=== PATIENT | female | born 1970 | race Caucasian/White ===

== ENCOUNTER 2020-06-21 15:55 | Outpatient (REF) | payer MEDICAID, SELFPAY | END 2020-06-21 15:56 | disposition home or self-care (01) | LOC: HO.LAB 15:55 | PROVIDERS: PCP Family Medicine; Visit Provider Internal Medicine | DX: Z20.828 Contact with and (suspected) exposure to other viral communicable diseases (principal) | CPT/HCPCS: C9803; U0003 ==

== ENCOUNTER 2021-01-23 11:22 | Outpatient (REF) | payer MEDICAID, SELFPAY ==
--- NOTE | ~2021-01-23 | XR_ITS ---
EXAMINATION: XR KNEE, RIGHT XR KNEE, LEFT CLINICAL INFORMATION: Pain in right and left knee. COMPARISON: None pertinent. TECHNIQUE: AP, lateral, tunnel, and sunrise views of the right knee and the left knee. FINDINGS: RIGHT KNEE: There is no evidence of fracture or focal osseous lesion. Alignment appears anatomic. The joint spaces are relatively well maintained. No significant degenerative change. No significant joint effusion. The soft tissues are unremarkable. LEFT KNEE: There is no evidence of fracture or focal osseous lesion. Alignment is anatomic and the joint spaces are relatively well maintained. No significant degenerative change. No significant joint effusion. The soft tissues are unremarkable. XR/XR knee LT 4V IMPRESSION: Unremarkable radiographs of the right knee and left knee.
--- NOTE | ~2021-01-23 | XR_ITS ---
EXAMINATION: XR KNEE, RIGHT XR KNEE, LEFT CLINICAL INFORMATION: Pain in right and left knee. COMPARISON: None pertinent. TECHNIQUE: AP, lateral, tunnel, and sunrise views of the right knee and the left knee. FINDINGS: RIGHT KNEE: There is no evidence of fracture or focal osseous lesion. Alignment appears anatomic. The joint spaces are relatively well maintained. No significant degenerative change. No significant joint effusion. The soft tissues are unremarkable. LEFT KNEE: There is no evidence of fracture or focal osseous lesion. Alignment is anatomic and the joint spaces are relatively well maintained. No significant degenerative change. No significant joint effusion. The soft tissues are unremarkable. XR/XR knee RT 4V IMPRESSION: Unremarkable radiographs of the right knee and left knee.
== END 2021-01-23 11:23 | disposition home or self-care (01) ==
LOC: HO.XRAY 11:22
PROVIDERS: Absent Provider Family Medicine; PCP Family Medicine; Visit Provider Family Medicine
DX: M25.561 Pain in right knee (principal)
CPT/HCPCS: 73564

== ENCOUNTER 2022-05-31 | Outpatient (REF) | payer MEDICAID, SELFPAY | END 2022-05-31 00:01 | disposition home or self-care (01) | LOC: HO.HOSX | PROVIDERS: Visit Provider Physician Assistant | DX: Z13.89 Encounter for screening for other disorder (principal) ==

== ENCOUNTER 2023-03-24 18:36 | Outpatient (REF) | payer MEDICAID, SELFPAY ==
[2023-03-24 19:21] LABS: Influenza A PCR NEGATIVE (Negative); Influenza B PCR NEGATIVE (Negative); Resp Syncy Virus RNA Qual PCR NEGATIVE (Negative); SARS COV2 PCR INHOUSE NEGATIVE (Negative)
== END 2023-03-24 18:37 | disposition home or self-care (01) ==
LOC: HO.HHCLNP 18:36
PROVIDERS: Visit Provider Registered Nurse
DX: Z20.822 Contact with and (suspected) exposure to COVID-19 (principal); J02.9 Acute pharyngitis, unspecified
CPT/HCPCS: 0241U

== ENCOUNTER 2023-03-27 13:23 | Outpatient (REF) | payer OTHER, SELFPAY ==
--- NOTE | ~2023-03-27 | XR_ITS ---
EXAMINATION: XR CHEST CLINICAL INFORMATION: Dyspnea. COMPARISON: 02/04/2014 chest radiograph. TECHNIQUE: 2 views of the chest were obtained. FINDINGS: No significant abnormality is noted involving the heart, lungs, mediastinum, bony thorax or soft tissues. XR/XR chest 2V IMPRESSION: No acute cardiopulmonary process.
[2023-03-27 20:02] LABS: Influenza A PCR NEGATIVE (Negative); Influenza B PCR NEGATIVE (Negative); Resp Syncy Virus RNA Qual PCR NEGATIVE (Negative); SARS COV2 PCR INHOUSE NEGATIVE (Negative)
== END 2023-03-27 13:24 | disposition home or self-care (01) ==
LOC: HO.HHCX 13:23
PROVIDERS: Visit Provider Student in an Organized Health Care Education/Training Program
DX: Z20.822 Contact with and (suspected) exposure to COVID-19 (principal); J06.9 Acute upper respiratory infection, unspecified; R06.00 Dyspnea, unspecified; R05.9 Cough, unspecified; R50.9 Fever, unspecified
CPT/HCPCS: 0241U; 71046

== ENCOUNTER 2023-10-07 19:41 | Emergency (ER) | payer SELFPAY ==
--- NOTE | ~2023-10-07 | XR_ITS ---
EXAMINATION: XR CERVICAL SPINE CLINICAL INFORMATION: Neck pain COMPARISON: None available. TECHNIQUE: 3 views of the cervical spine were obtained. FINDINGS: There is mild straightening of the cervical spine. Minimal disc space narrowing is noted at C4-C5 and C5-C6 with some mild spondylitic endplate changes. No prevertebral soft tissue swelling, fractures or subluxations are seen. XR/XR cervical spine 3V IMPRESSION: Some minimal degenerative changes in the cervical spine as described above.
[2023-10-07 21:04] VITALS: BP 161/98; PULSE 93; RESP 14; TEMP 36.6; O2SAT 99; BMI 25.8
[2023-10-07 23:41] VITALS: BP 149/97; PULSE 85; RESP 16; TEMP 36.7; O2SAT 94
--- NOTE | 2023-10-07 23:53 | ECG_ITS ---
Test Reason : DIZZY Blood Pressure : / mmHG Vent. Rate : 086 BPM Atrial Rate : 087 BPM P-R Int : 176 ms QRS Dur : 082 ms QT Int : 350 ms P-R-T Axes : 057 058 068 degrees QTc Int : 418 ms Normal sinus rhythm Normal ECG When compared with ECG of 11-FEB-2014 15:30, No significant change was found Referred By: Aris Colunga Electronically Signed By:MERARI TAYLOR
[2023-10-08 00:14] LABS: MANUAL DIFF FLAG NO
[2023-10-08 00:15] LABS: Basophils Absolute Auto 0.1 X10*3/uL (0.0-0.2); Basophils Percent Auto 0.9 % (0-2); Eosinophils Absolute Auto 0.2 X10*3/uL (0.0-0.4); Eosinophils Percent Auto 2.6 % (0-4); Hematocrit 41.6 % (37.0-47.0); Hemoglobin 13.4 g/dl (12.0-16.0); Imm Gran Abs Auto 0.09 X10*3/uL (0.00-0.03); Imm Gran Pct Auto 1.3 % (0.0-0.4); Lymphocytes Absolute Auto 2.9 X10*3/uL (1.2-4.9); Lymphocytes Percent Auto 41.8 % (20-40); Mean Corpuscular HGB Conc 32.2 g/dl (31.0-35.0); Mean Corpuscular Hemoglobin 25.9 pg (27.0-33.0); Mean Corpuscular Volume 80.5 fL (80.0-98.0); Mean Platelet Volume 9.6 fL (9.4-12.3); Monocytes Absolute Auto 0.4 X10*3/uL (0.1-1.2); Monocytes Percent Auto 6.3 % (2-11); Neutrophils Absolute Auto 3.2 x10*3/uL (2.0-8.3); Neutrophils Percent Auto 47.1 % (45-73); Platelet Count 335 X10*3/uL (160-400); Red Blood Count 5.17 X10*6/uL (4.20-5.50); Red Cell Distribution Width 13.6 % (11.0-16.0); White Blood Count 6.9 X10*3/uL (4.8-10.8)
[2023-10-08 00:23] LABS: INTERNATIONAL NORM RATIO 0.8 (0.9-1.1); Prothrombin Time 10.1 SEC (11.1-13.3)
[2023-10-08 00:25] LABS: Partial Thromboplastin Time 30.6 SEC (26.0-36.8)
[2023-10-08 00:47] LABS: Alanine Aminotransferase 25 U/L (0-31); Albumin Level 4.3 g/dL (3.5-5.0); Alkaline Phosphatase 121 U/L (39-117); Anion Gap 16 (12-20); Aspartate Amino Transferase 31 U/L (5-31); Bilirubin Total 0.2 mg/dL (0.0-1.0); Blood Urea Nitrogen 10 mg/dL (9-16); Calcium 9.3 mg/dL (8.4-10.2); Carbon Dioxide 23 mmol/L (22-29); Chloride 105 mmol/L (96-108); Creatinine Clr Calc Pharmacy 87.1; Estimated Glomerular Filt Rate > 60; Glucose Random 104 mg/dL (60-115); Potassium 4.2 mmol/L (3.3-5.1); Sodium 140 mmol/L (135-145); Total Protein 7.6 g/dL (6.5-8.0); Troponin-I High Sensitivity < 2.7 ng/L (<3.5-17.0)
--- NOTE | 2023-10-08 00:56 | ED_ITS ---
HPI - General Adult General Chief complaint: Neck Pain/Injury Stated complaint: neck pain Time Seen by Provider: 10/07/23 23:09 Source: patient Mode of arrival: ambulatory Limitations: no limitations History of Present Illness HPI narrative: 53-year-old female with past medical history of hyperlipidemia, asthma, presents to ED for posterior neck pain 1 for 1 month now radiating down left arm the past 2 weeks. Patient denies any slurred speech, facial droop, paralysis of the upper extremities, chest pain, shortness of breath, or swelling of upper extremity. Patient denies any recent trauma. Related Data Previous Rx's Medication Instructions Recorded oxycodone 5 mg capsule 5 mg PO Q8H PRN pain 3 days #9 caps 10/08/23 prednisone 20 mg tablet 40 mg (2 x 20 mg) PO DAILY 5 days 10/08/23 #10 tabs Allergies Allergy/AdvReac Type Severity Reaction Status Date / Time ibuprofen [Motrin] Allergy Unknown GI upset Verified 10/07/23 21:03 naproxen [Naprosyn] Allergy Unknown GI upset Verified 10/07/23 21:03 Review of Systems 2 Review of Systems: Posterior neck pain radiating down left arm Yes all other systems are reviewed and are negative PMFSH Social History Social History Smoked in Last 30 Days: Yes Use of substances other than those prescribed or required for medical reasons: No Advance Directives: No Advance Directives Information Provided: No Physical Exam ED Vital Signs: Vital Signs - 24 hr 10/07/23 21:04 10/07/23 23:41 Temperature 97.8 F 98.0 F Pulse Rate 93 85 Respiratory Rate 14 16 Blood Pressure 161/98 H 149/97 H Pulse Oximetry 99 94 Oxygen Delivery Method Room Air Room Air BMI result Body Mass Index 25.8 Const General: cooperative, healthy appearing, comfortable, no acute distress, well developed, alert, awake and Physically active Orientation/consciousness: oriented to person, oriented to place, oriented to time and patient oriented x3 HENMT Head: Yes normal to inspection, Yes No palpable skull fracture present, Yes normocephalic, Yes atraumatic and No abrasion Eyes General: appearance normal, both eyes and all related structures Neck Neck: Yes normal visual inspection, Yes full ROM, Yes no lymphadenopathy, Yes no meningeal signs, Yes trachea midline, Yes supple, No anterior neck swelling and Yes tender (posterior cervical tenderness) Chest Chest palpation & inspection: normal inspection of the chest and normal palpation of entire chest wall Resp Effort & Inspection: normal respiratory effort and able to speak in complete sentences Auscultation: clear to auscultation bilaterally Cardio Jugular venous distension: no JVD Heart sounds: S1 normal heart sound present and S2 normal heart sound present GI Inspection: Yes normal to inspection Palpation (GI): Soft to palpation, not firm, nontender, no guarding and not rigid General: No CVA tenderness and Yes no CVA tenderness Back/Spine/Pelvis Back: no CVA tenderness, No CVA tenderness and No back tenderness Skin General skin exam: no rashes or lesions noted, elasticity normal and turgor normal Neuro General: oriented to person, oriented to place, oriented to time, patient oriented x3, gait normal, tone normal, moves all extremities, Normal light touch and pain sensation, no meningeal signs, no focal motor deficits, CN's II-XI intact bilaterally and normal sensation to monofilament Extrem Other: All extremities motor/neuro/vascular exam intact. Left upper extremity negative for signs of DVT, cellulitis, fracture, compartment syndrome, or arterial occlusion. All other extremities normal. General: Yes normal to inspection and Yes full ROM Psych Appearance: grossly normal, well kempt and not disheveled Medications Administered Discontinued Medications Generic Name Dose Route Start Last Admin Trade Name Freq PRN Reason Stop Dose Admin Ketorolac Tromethamine 30 mg 10/08/23 00:55 10/08/23 01:11 Ketorolac Tromethamine 30 Mg/Ml Vial IM 10/08/23 00:56 30 mg ONCE ONE Administration Prednisone 60 mg 10/08/23 00:55 10/08/23 01:11 Prednisone 20 Mg Tablet PO 10/08/23 00:56 60 mg ONCE ONE Administration Medical Decision Making Medical Decision Making MDM Narrative: 53-year-old female with posterior neck pain radiating down left arm. X-ray was ordered which shows cervical radiculopathy. Due to age patient had cardiac workup including 1 troponin due to having symptoms 1 month of posterior neck pain and left arm pain. Patient has normal strength neuro and vascular exam of all extremities. Not suspecting stroke or carotid dissection. Patient informed to follow-up with primary care provider for PCP and an or MRI if needed. Patient explaining worrisome sign informed to return to the ED if she has them Differential Diagnosis Differential Diagnoses: The differential diagnosis associated with the presentation includes (cervical radiculpathy) Admission/Observation Consideration of admission/observation: Escalation of care including admission/observation considered Lab Data MDM Lab Attestation statement: I reviewed the patient's lab results. 10/08/23 00:08 10/08/23 00:08 Labs: Lab Results 10/08/23 Range/Units 00:08 WBC 6.9 (4.8-10.8) X10*3/uL RBC 5.17 (4.20-5.50) X10*6/uL Hgb 13.4 (12.0-16.0) g/dl Hct 41.6 (37.0-47.0) % MCV 80.5 (80.0-98.0) fL MCH 25.9 L (27.0-33.0) pg MCHC 32.2 (31.0-35.0) g/dl RDW 13.6 (11.0-16.0) % Plt Count 335 (160-400) X10*3/uL MPV 9.6 (9.4-12.3) fL Immature Gran % (Auto) 1.3 H (0.0-0.4) % Neut % (Auto) 47.1 (45-73) % Lymph % (Auto) 41.8 H (20-40) % [place] % (Auto) 6.3 (2-11) % Eos % (Auto) 2.6 (0-4) % Baso % (Auto) 0.9 (0-2) % Lymph # (Auto) 2.9 (1.2-4.9) X10*3/uL [place] # (Auto) 0.4 (0.1-1.2) X10*3/uL Eos # (Auto) 0.2 (0.0-0.4) X10*3/uL Baso # (Auto) 0.1 (0.0-0.2) X10*3/uL Abs Immat Gran (auto) 0.09 H (0.00-0.03) X10*3/uL Absolute Neuts (auto) 3.2 (2.0-8.3) x10*3/uL Absolute Nucleated RBC 0.000 (0.0-0.012) X10*3/uL Nucleated RBC % (auto) 0.0 (0.0-0.2) /100WBC PT 10.1 L (11.1-13.3) SEC INR 0.8 L (0.9-1.1) APTT 30.6 (26.0-36.8) SEC Sodium 140 (135-145) mmol/L Potassium 4.2 (3.3-5.1) mmol/L Chloride 105 (96-108) mmol/L Carbon Dioxide 23 (22-29) mmol/L Anion Gap 16 (12-20) BUN 10 (9-16) mg/dL Creatinine 0.77 (0.5-1.4) mg/dL Estim Creat Clear Calc 87.1 Estimated GFR > 60 Random Glucose 104 (60-115) mg/dL Calcium 9.3 (8.4-10.2) mg/dL Total Bilirubin 0.2 (0.0-1.0) mg/dL AST 31 (5-31) U/L ALT 25 (0-31) U/L Alkaline Phosphatase 121 H (39-117) U/L Troponin I High Sens < 2.7 (<3.5-17.0) ng/L Total Protein 7.6 (6.5-8.0) g/dL Albumin 4.3 (3.5-5.0) g/dL Independent Interpretation I performed an independent interpretation of an: EKG (negative stemi) and Plain X-Ray Radiology Impression Discussion of test interpretation with radiology: I have reviewed the radiologist's reading. External Record Review External record reviewed: Other (Prior visits) Discharge Plan Discharge Clinical Impression: Cervical radiculopathy Patient Disposition: Home, Self-Care Instructions: Cervical Radiculopathy (ED) Additional Instructions: Recommend follow-up with primary care provider. Return to the ED immediately for any upper extremity weakness, paralysis, tingling, chest pain, shortness of breath, headache, dizziness, slurred speech, facial droop, or any other concerning symptoms. Prescriptions: New prednisone 20 mg tablet 40 mg PO DAILY 5 Days Qty: 10 0RF oxycodone 5 mg capsule 5 mg PO Q8H PRN (Reason: pain) 3 Days Qty: 9 0RF Rx Instructions: Partial Fill upon patient request. Stand Alone Forms: Work/School Release Interventions: ED Discharge Assessment Last Done: 10/08/23 01:34 Discharge Date/Time: 10/08/23 01:37 Print Language: [place]
[2023-10-08] MEDS: predniSONE 20 MG TABLET 60 MG PO (01:11)
[2023-10-08] MEDS: Ketorolac Tromethamine 30 MG/ML VIAL IM (01:11)
--- NOTE | 2023-10-08 01:15 | PC.NURSE ---
Pt ca&ox4, no signs of distress. Pt now reporting 9/10 pain. Pt medicated per oct. Plan of care ongoing.
--- NOTE | 2023-10-08 01:19 | PC.NURSE ---
provider with pt. plan of care ongoing.
== END 2023-10-08 01:37 | disposition home or self-care (01) ==
PROVIDERS: Physician Assistant; Emergency Provider Emergency Medicine Emergency Medical Services
DX: M54.12 Radiculopathy, cervical region (principal); M54.2 Cervicalgia; R42 Dizziness and giddiness; R79.1 Abnormal coagulation profile; E78.5 Hyperlipidemia, unspecified; F17.200 Nicotine dependence, unspecified, uncomplicated
CPT/HCPCS: 36415; 72040; 80053; 84484; 85025; 85610; 85730; 93005; 96372; 99284; 99285; J1885

== ENCOUNTER → 2023-10-07 23:53 | Outpatient (BNV) | payer MEDICAID, SELFPAY | PROVIDERS: Emergency Provider Emergency Medicine Emergency Medical Services; Visit Provider Internal Medicine | DX: R42 Dizziness and giddiness (principal) | CPT/HCPCS: 93010 ==

== ENCOUNTER 2024-10-28 09:15 | Outpatient (REF) | payer MEDICAID, SELFPAY ==
[2024-10-28 11:55] LABS: Anion Gap 11 (12-20); Blood Urea Nitrogen 6 mg/dL (9-16); Calcium 10.1 mg/dL (8.4-10.2); Carbon Dioxide 28 mmol/L (22-29); Chloride 105 mmol/L (96-108); Estimated Glomerular Filt Rate > 60; Glucose Random 122 mg/dL (60-115); Potassium 4.2 mmol/L (3.3-5.1); Sodium 140 mmol/L (135-145)
== END 2024-10-28 09:16 | disposition home or self-care (01) ==
LOC: HO.HHCL 09:15
PROVIDERS: Visit Provider Nurse Practitioner
DX: R03.0 Elevated blood-pressure reading, without diagnosis of hypertension (principal)
CPT/HCPCS: 36415; 80048

== ENCOUNTER 2024-11-26 10:26 | Emergency (ER) | payer MEDICAID, SELFPAY ==
--- NOTE | ~2024-11-26 | US_ITS ---
EXAMINATION: US NONINVASIVE ASSESSMENT OF THE LEFT LOWER EXTREMITY . CLINICAL INFORMATION: Acute pain, left lower extremity. Hypertension. Smoking, hyperlipidemia. COMPARISON: None available. TECHNIQUE: Duplex Doppler techniques with waveform analysis and measurement of velocities in the common femoral, profunda femoris, superficial femoral, popliteal and tibial arteries were performed, left lower extremity. . The study was performed only at rest. FINDINGS: LEFT LOWER EXTREMITY DUPLEX ULTRASOUND: Common femoral artery: 82 cm/s. Triphasic waveform. Profunda femoris artery: 74 cm/s. Triphasic waveform. Superficial femoral artery (proximal): 60 cm/s. Triphasic waveform. Superficial femoral artery (mid): 92 cm/s. Triphasic waveform. Superficial femoral artery (distal): 80 cm/s. Triphasic waveform. Popliteal artery: 84 cm/s Triphasic waveform. Posterior tibial artery: 57 cm/s Triphasic waveform. Peroneal artery: 31 cm/s. Biphasic waveform. Anterior tibialis artery: 64 cm/s. Biphasic waveform. Dorsalis base artery: 33 cm/s. Monophasic waveform. US/US arterial duplex LE LT IMPRESSION: Moderate inflow disease from the posterior tibialis to the anterior tibialis artery. Severe inflow disease, dorsalis base artery. No occluded interrogated arteries. Electronically signed by: Erich Bauer MD 11/26/2024 12:58 PM EDT
--- NOTE | ~2024-11-26 | US_ITS ---
EXAMINATION: US TRIPLEX LOWER EXTREMITY, LEFT CLINICAL INFORMATION: Pain, left lower extremity. COMPARISON: None available. TECHNIQUE: Color-flow triplex imaging with spectral analysis and compression Doppler were performed on the left lower extremity. FINDINGS: Respiratory variation, normal compression and augmented flow are noted throughout the interrogated common femoral vein, superficial femoral vein, profunda femoral vein, popliteal vein and midcalf peroneal and posterior tibial venous . There is no Kaur's cyst. US/US venous duplex LE IMPRESSION: No acute deep venous thrombosis involving the left lower extremity. Negative for DVT. Electronically signed by: Erich Bauer MD 11/26/2024 12:48 PM EDT
[2024-11-26 10:35] VITALS: BP 154/91; PULSE 104; RESP 18; TEMP 37.1; O2SAT 98; BMI 28.6
--- NOTE | 2024-11-26 11:29 | ED.GENADULT ---
HPI - General Adult General Chief complaint: Extremity Injury, Lower Stated complaint: l leg swelling sent in from Urgent Care Time Seen by Provider: 11/26/24 11:11 Source: patient Mode of arrival: ambulatory Limitations: no limitations History of Present Illness ED Provider: Aris Colunga HPI narrative: 54 yolf female High cholesterol, hypertension, asthma, and smoker presents to the ED for increased left calf pain for the past 3 weeks. patient denies any recent trauma, recent travel, or recent surgery. patient denies any chest pain, shortness of breath, fever, r numbness/tingling, hotness, or coldness. Related Data Previous Rx's ?Medication ?Instructions ?Recorded oxycodone 5 mg capsule 5 mg PO Q8H PRN pain 3 days #9 caps 10/08/23 prednisone 20 mg tablet 40 mg (2 x 20 mg) PO DAILY 5 days 10/08/23 #10 tabs aspirin 81 mg capsule 81 mg PO DAILY 30 days #30 caps 11/26/24 atorvastatin 80 mg tablet (Lipitor) 80 mg PO DAILY 30 days #30 tabs 11/26/24 Allergies Allergy/AdvReac Type Severity Reaction Status Date / Time ibuprofen [Motrin] Allergy Unknown GI upset Verified 11/26/24 10:39 naproxen [Naprosyn] Allergy Unknown GI upset Verified 11/26/24 10:39 Review of Systems Review of Systems: left calf pain Yes all other systems are reviewed and are negative [facility] [place] Social History Social History Advance Directives: No Advance Directives Information Provided: No Physical Exam ED Vital Signs: Vital Signs - 24 hr 11/26/24 10:35 Temperature 98.7 F Pulse Rate 104 H Respiratory Rate 18 Blood Pressure 154/91 H Pulse Oximetry 98 Oxygen Delivery Method Room Air BMI result Body Mass Index 28.6 Const General: cooperative, healthy appearing, comfortable, no acute distress, well developed, alert, awake and Physically active Orientation/consciousness: patient oriented x3 HENMT Head: Yes normal to inspection, Yes No palpable skull fracture present, Yes normocephalic and Yes atraumatic Eyes General: appearance normal, both eyes and all related structures Neck Neck: Yes normal visual inspection, Yes full ROM, Yes no lymphadenopathy, Yes no meningeal signs, Yes trachea midline, Yes supple, No anterior neck swelling and No tender Chest Chest palpation & inspection: normal inspection of the chest and normal palpation of entire chest wall Resp Effort & Inspection: normal respiratory effort and able to speak in complete sentences Auscultation: clear to auscultation bilaterally Cardio Jugular venous distension: no JVD Heart sounds: S1 normal heart sound present and S2 normal heart sound present GI Inspection: Yes normal to inspection Palpation (GI): Soft to palpation, not firm, nontender, no guarding and not rigid General: Yes no CVA tenderness Back/Spine/Pelvis Back: no CVA tenderness and No back tenderness Skin General skin exam: no rashes or lesions noted, elasticity normal and turgor normal Neuro General: patient oriented x3, gait normal, tone normal, moves all extremities, Normal light touch and pain sensation, no meningeal signs, no focal motor deficits, CN's II-XI intact bilaterally and normal sensation to monofilament Extrem General: Yes normal to inspection, Yes full ROM and Yes capillary refill normal Ankle/foot/toe images: 1. Significant tenderness on palpation. Negative for swelling or redness. Negative for Ecchymosis, erythema, red streaks. Rest of extremity normal. Neuro/Motor exam is intact. Patient has PT pulse with doppler. Palpable pulsues Psych Appearance: grossly normal, well kempt and not disheveled Medical Decision Making Medical Decision Making MDM Narrative: 74-year-old female history of high cholesterol, hypertension, smoker, and family history of blood clot unaware if it is vein arterial presents to ED for left calf pain worsening for the past 3 weeks. Patient is a heavy smoker. Will send patient for ultrasound to rule out DVT and also check for any arterial vascular disease due to patient being heavy smoker and this could be also claudication. Labs ordered. 2:27pm: Venous ultrasound negative for DVT. Arterial ultrasound of extremity shows peripheral arterial disease. Negative for to occlusion. Lower extremities not cold. Neuro exam intact. Palpable pulses. Case discussed with Dr. Britton and he was shown ultrasound results. He recommends patient being discharged on aspirin and a statin. Not suspecting artieral occlusions, cellulilits, septic joint, compartment syndromes, fractures, disclocation, or lympphangitits. Patient has no allergic reaction aspirin or NSAID Differential Diagnosis Differential Diagnoses: The differential diagnosis associated with the presentation includes (DVT, arterial occlusion) Admission/Observation Consideration of admission/observation: Escalation of care including admission/observation considered Consult Healthcare Provider Management of the patient was discussed with: Signal Mechanic (Dr. Britton) Lab Data 11/26/24 12:42 11/26/24 12:42 Labs: Lab Results 11/26/24 Range/Units 12:42 WBC 6.7 (4.8-10.8) X10*3/uL RBC 4.94 (4.20-5.50) X10*6/uL Hgb 12.8 (12.0-16.0) g/dl Hct 39.8 (37.0-47.0) % MCV 80.6 (80.0-98.0) fL MCH 25.9 L (27.0-33.0) pg MCHC 32.2 (31.0-35.0) g/dl RDW 13.4 (11.0-16.0) % Plt Count 319 (160-400) X10*3/uL MPV 9.2 L (9.4-12.3) fL Immature Gran % (Auto) 0.7 H (0.0-0.4) % Neut % (Auto) 56.9 (45-73) % Lymph % (Auto) 33.9 (20-40) % [place] % (Auto) 6.3 (2-11) % Eos % (Auto) 1.6 (0-4) % Baso % (Auto) 0.6 (0-2) % Lymph # (Auto) 2.3 (1.2-4.9) X10*3/uL [place] # (Auto) 0.4 (0.1-1.2) X10*3/uL Eos # (Auto) 0.1 (0.0-0.4) X10*3/uL Baso # (Auto) 0.0 (0.0-0.2) X10*3/uL Abs Immat Gran (auto) 0.05 H (0.00-0.03) X10*3/uL Absolute Neuts (auto) 3.8 (2.0-8.3) x10*3/uL Absolute Nucleated RBC 0.000 (0.0-0.012) X10*3/uL Nucleated RBC % (auto) 0.0 (0.0-0.2) /100WBC PT 11.2 (10.9-12.4) SEC INR 1.0 (0.9-1.1) APTT 33.5 (26.0-36.8) SEC Sodium 140 (135-145) mmol/L Potassium 4.5 (3.3-5.1) mmol/L Chloride 106 (96-108) mmol/L Carbon Dioxide 27 (22-29) mmol/L Anion Gap 12 (12-20) BUN 9 (9-16) mg/dL Creatinine 0.60 (0.5-1.4) mg/dL Estim Creat Clear Calc 111.9 Estimated GFR > 60 Random Glucose 92 (60-115) mg/dL Calcium 9.6 (8.4-10.2) mg/dL Total Bilirubin 0.2 (0.0-1.0) mg/dL AST 27 (5-31) U/L ALT 26 (0-31) U/L Alkaline Phosphatase 93 (39-117) U/L Total Protein 7.3 (6.5-8.0) g/dL Albumin 4.3 (3.5-5.0) g/dL Independent Interpretation I performed an independent interpretation of an: Ultrasound Radiology Impression Discussion of test interpretation with radiology: I have reviewed the radiologist's reading. Discharge Plan Discharge Clinical Impression: Claudication, Peripheral arterial disease Patient Disposition: Home, Self-Care Instructions: Peripheral Artery Disease (ED) Additional Instructions: Need follow-up with the vascular surgeon. Ultrasound shows peripheral arterial disease. Recommend cutting smoking. You will be discharged with aspirin and statin as recommended by vascular surgeon. Return to the ED for severe pain, bluish black discoloration, coldness, hotness, red streaks, inability to walk, or any other concerning symptoms. US/US arterial duplex LE LT IMPRESSION: Moderate inflow disease from the posterior tibialis to the anterior tibialis artery. Severe inflow disease, dorsalis base artery. No occluded interrogated arteries. Electronically signed by: Erich Bauer MD 11/26/2024 12:58 PM EDT Prescriptions: New aspirin 81 mg capsule 81 mg PO DAILY 30 Days Qty: 30 0RF atorvastatin [Lipitor] 80 mg tablet 80 mg PO DAILY 30 Days Qty: 30 0RF No Action prednisone 20 mg tablet 40 mg PO DAILY 5 Days Qty: 10 0RF oxycodone 5 mg capsule 5 mg PO Q8H PRN (Reason: pain) 3 Days Qty: 9 0RF Rx Instructions: Partial Fill upon patient request. Referrals: Guero Britton MD [Physician] - (Claudication. Ultrasound shows peripheral arterial disease) Interventions: ED Discharge Assessment Last Done: 11/26/24 16:18 Discharge Date/Time: 11/26/24 16:18 Print Language: [place]
--- OUTSIDE RECORDS SUMMARY | 2024-11-26 12:36 | XMS_ITS | Encounter Summary ---
Author Organization [employer] Address [address] [place] [address] Care Team Providers Care Modeling Agent Name Role Phone Jenny Abdul MD Primary Care Provider [phone] Encounter Details Date Type Department Care Team (Latest Contact Info) Description 11/26/2024 Travel Social History Tobacco Use Types Packs/Day Years Used Date Smoking Tobacco: Every Day Cigarettes Passive Smoke Exposure: Current Smokeless Tobacco: Never Comments Unknown Sex and Gender Information Value Date Recorded Sex Assigned at Female 06/10/2022 10:15 AM EDT Legal Sex Female 10:15 AM EDT Gender Identity Female 06/10/2022 10:15 AM EDT Sexual Orientation Choose not to disclose 2021 10:15 AM EDT documented as of this encounter Plan of Treatment Upcoming Encounters Date Type Department Care Team (Late st Contact Info) Description 12/21/2024 10:45 AM EDT Office Visit [facility] [address] [place] [address] Jenny Abdul MD [address] [place] [address] documented as of this encounter Visit Diagnoses Not on filedocumented in this encounter Care Teams Modeling Agent Relationship Specialty Start Date End Date Jenny Abdul MD [address] [place] [address] PCP - General Family Medicine 08/11/18 documented as of this encounter
--- OUTSIDE RECORDS SUMMARY | 2024-11-26 12:36 | XMS_ITS | Encounter Summary ---
Author Organization [employer] Address [address] [facility] [address] [place] [address] Care Team Providers Care Log Operations Coordinator Name Role Phone Jenny Abdul MD Primary Care Provider [phone] Reason for Visit * Reason Comments Leg Pain Encounter Details Date Type Department Care Team (Late st Contact Info) Description 11/26/2024 10:20 AM EDT Office Visit [facility] [address] [place], [place] [phone] Wai Anderson MD [address] [place], [place] [phone] Pain of left calf (Primary Dx) Social History Tobacco Use Types Packs/Day Years [...] AM EDT documented as of this encounter Last Filed Vital Signs Vital Sign Reading Time Taken Comments Blood Pressure 149/89 11/26/2024 9:50 AM EDT Pulse 99 11/26/2024 9:50 AM EDT Temperature 36.6 ??C (97.9 ??F) 11/26/2024 9:50 AM ED T Respiratory Rate 18 11/26/2024 9:50 AM EDT Oxygen Saturation 97% 11/26/2024 9:50 AM EDT Inhaled Oxygen Concentration - - Weight 81.6 kg (180 lb) 11/26/2024 9:50 AM EDT Height - - Body Mass Index 29.05 06/04/2023 4:05 PM EDT documented in this encounter Progress Notes * Wai Anderson MD - 11/26/2024 10:20 AM EDT Subjective History was provided by the patient. Sapphire Jenkins is a 54 y.o. female who presents for evaluation of left calf pain for 1 month. Did not think much of it initially, but now with swelling and pain radiating up towards her groin area. Nosignificant swelling of her foot distally. Denies F/C. Denies CP/SOB/ALVES. Denies any fall or injury. No change in activity level. Denies any prolonged immobilization or travel. Objective Vitals: 11/26/24 0950 BP: (!) 149/89 BP Location: Left arm Patient Position: Sitting BP Cuff Size: Adult Pulse: 99 Resp: 18 Temp: 97.9 ??F (36.6 ??C) TempSrc: Temporal SpO2: 97% Weight: 180 lb (81.6 kg) Physical Exam Vitals reviewed. Constitutional: Appearance: Normal appearance. She is normal weight. HENT: Head: Normocephalic and atraumatic. Right Ear: External ear normal. Left Ear: External ear normal. Nose: Nose normal. Mouth/Throat: Mouth: Mucous membranes are moist. Pharynx: Oropharynx is clear. Eyes: Extraocular Movements: Extraocular movements intact. Conjunctiva/sclera: Conjunctivae normal. Cardiovascular: Rate and Rhythm: Normal rate and regular rhythm. Heart sounds: Normal heart sounds. Pulmonary: Effort: Pulmonary effort is normal. Breath sounds: Normal breath sounds. Musculoskeletal: General: Swelling (Non-pitting edema and erythema of left medial/posterior calf area; no cords; negative Elsa's; no foot/ankle edema; no inguinal LAD) present. Normal range of motion. Cervical back: Normal range of motion and neck supple. Skin: General: Skin is warm and dry. Neurological: General: No focal deficit present. Mental Status: She is alert and oriented to person, place, and time. Mental status is at baseline. Psychiatric: Mood and Affect: Mood normal. Behavior: Behavior normal. Thought Content: Thought content normal. Judgment: Judgment normal. No visits with results within 2 Day(s) from this visit. Latest known visit with results is: Office Visit on 10/27/2024 Component Date Value Ref Range Status Sodium 10/28/2024 140 135 - 145 mmol/L Final Potassium 10/28/2024 4.2 3.3 - 5.1 mmol/L Final Chloride 10/28/2024 105 96 - 108 mmol/L Final Carbon Dioxide 10/28/2024 28 22 - 29 mmol/L Final Anion Gap 10/28/2024 11 (L) 12 - 20 Final Urea Nitrogen (BUN) 10/28/2024 6 (L) 9 - 16 mg/dL Final Creatinine, Serum 10/28/2024 0.64 0.5 - 1.4 mg/dL Final Estimated Glomerular Filt Rate 10/28/2024 >60 Final Chronic Kidney Disease: Estimated GFR < 60 mL/min/[id number] Kidney Disease: Estimated GFR < 15 mL/min/1.73m2 Glucose 10/28/2024 122 (H) 60 - 115 mg/dL Final Calcium 10/28/2024 10.1 8.4 - 10.2 mg/dL Final Sapphire was seen today for leg pain. Diagnoses and all orders for this visit: Pain of left calf (Primary) Patient presents to [facility] due to 1-month duration of left calf pain and edema Now reports symptoms radiating proximally towards her groin area No preceding injury or any activity change Denies any prolonged immobilization or travel Denies F/C; denies CP/SOB/ALVES Recommended ER evaluation for further diagnostic work up, including venous doppler U/S to rule out DVT Patient understands the plan and will present there now directly to [facility] Partner will take her using their own vehicle documented in this encounter Plan of Treatment Upcoming Encounters Date Type Department Care Team (Late st Contact Info) Description 12/21/2024 10:45 AM EDT Office Visit [facility] [address] [place] [address] Jenny Abdul MD [address] [place] [address] documented as of this encounter Visit Diagnoses Diagnosis Pain of left calf- Primary documented in this encounter Care Teams Log Operations Coordinator Relationship Specialty Start Date End Date Jenny Abdul MD [address] [place] [address] PCP - General Family Medicine 08/11/18 documented as of this encounter
--- OUTSIDE RECORDS SUMMARY | 2024-11-26 12:36 | XMS_ITS | Clinical Summary ---
Author Organization [employer] Address [address] [facility] [address] [place] [address] Care Team Providers Care Addiction Psychiatrist Name Role Phone Jenny Abdul MD Primary Care Provider [phone] Allergies No known active allergies Medications dicyclomine (Bentyl) 20 MG tablet take 1 tablet by oral route 3 times a day as needed for abdominal discomfort 1 Active Diclofenac Sodium 1 % gel Apply topically every 12 (twelve) hours. 1 Active famotidine (Pepcid) 40 MG tablet Take 1 tablet by mouth at bed time. 2 Active hydrOXYzine HCl (Atarax) 25 MG tablet take 1 or 2 tablets by oral route 3 times every day as needed 2 Active montelukast (Singulair) 10 MG tablet Take 1 tablet by mouth at bed time. 1 Active nicotine polacrilex (Nicorette) 4 MG gum chew 1 piece of gum by oral route every 1- 2 hours as needed and as directed 0 Active omeprazole (PriLOSEC) [address] capsule Take 1 capsule by mouth at bed time. 1 Active atorvastatin (Lipitor) 40 MG tabletIndication s:Dyslipidemia TAKE 1 TABLET BY MOUTH EVERY MORNING 90 tablet 3 Active loratadine (Claritin) 10 MG tabletIndication s:Allergic rhinitis, unspecified seasonality, unspecified trigger TAKE 1 TABLET BY MOUTH EVERY MORNING 90 tablet 3 Active cloNIDine (Catapres) 0.1 MG tabletIndication s:Insomnia, unspecified type TAKE 1 TABLET BY MOUTH ONCE DAILY NEEDED FOR SLEEP 90 tablet 3 Active albuterol (2.5 MG/3ML) 0.083% nebulizer solution inhale 3 milliliter by nebulization route 4 times every day prn as needed 75 mL 2 3 Active citalopram (CeleXA) 10 MG tabletIndication s:Mixed anxiety and depressive disorder TAKE 1 TABLET BY MOUTH EVERY DAY WITH 20 MG TABLET 30 tablet 2 3 Active citalopram (CeleXA) 20 MG tabletIndication s:Mixed anxiety and depressive disorder TAKE 1 TABLET BY MOUTH EVERY DAY WITH 10 MG TABLET 30 tablet 2 3 Active Blood Pressure kitIndications:E levated blood pressure reading 1 each 2 times daily. 1 kit 5 026 Active lisinopril 10 MG tabletIndication s:Primary hypertension Take 1 tablet (10 mg) by mouth in the morning. 90 tablet 5 Active Mometasone Furoate (Asmanex HFA) 200 MCG/ACT aerosolIndicatio ns:COPD with asthma ([facility]) INHALE 2 PUFFS BY MOUTH TWICE DAILY. RINSE MOUTH AFTER USING 13 g 2 5 Active albuterol (ProAir HFA) 108 (90 Base) MCG/ACT inhalerIndicatio ns:Sore throat Inhale 2 puffs every 4 (four) hours if needed for shortness of breath or wheezing. 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 -Advised to continue w BP meds and fu w PCP in the next 4 wk. Hypertriglyceridemia 04/10/2012 Mixed anxiety and depressive disorder 04/10/2012 Resolved Problems Problem Noted Date Diagnosed Date Resolved Date Asthma exacerbation 03/28/2023 06/26/20 23 Assessment & Plan (03/28/2023 7:01 AM EDT): Pt w Hx of asthma / COPD, tobacco smoker. Pt has Sx consistent w viral infection that are exacerbating her asthma. VS normal. Afebrile. On exam noted wheezing bilaterally. No respiratory distress. -Covid, Flu - neg today. -Continue supportive treatment. -Tylenol PRN. -Prescribed cough Rx. -Start Prednisone 20 mg every day for 5 d for asthma exacerbation. Albuterol PRN. Pt has nebulizer machine at home. -Advise to continue smoking cessation. Refused aids already prescribed by PCP. -Nebulization done here in clinic w improvement of her Sx and lung examination after therapy. -Alarm signs and Sx discussed. -CXR today: reported as neg (I called pt but was not able to reach and left voicemail with normal image result). Encounters Date Type Department Care Team Description 11/26/2024 10:20 AM EDT Office Visit [facility] [address] [place] [phone] Wai Anderson MD Pain of left calf (Primary Dx) 11/26/2024 Travel 11/10/2024 2:30 PM EDT Clinical Support [facility] [address] [place] [address] [phone] Demetria Navarro RN Primary hypertension 11/10/2024 Travel 10/27/2024 4:00 PM EDT Office Visit [facility] [address] [place] [phone] Primary hypertension (Primary Dx); Elevated blood pressure reading; COPD with asthma ([facility]); Sore throat from Last 3 Months Immunizations Name Administration Dates Next Due Hep B, adult 05/18/2007,01/14/2007,12/11/2006 Influenza Injectable Quadriv alant Preservative Free IIV4 MDCK 05/26/2018 Influenza injectable quadriv alent IIV4 with preservative 09/01/2017,06/06/2016,05/04/2015 Influenza injectable quadriv alent preservative free 06/22/2021,05/30/2020,05/17/2020,07/17 Influenza, IIV3, injectable 05/17/2014, 0,05/10/2009 Influenza, Split (incl. rukhsana fied surface antigen) 11/18/2013,04/10/2012 Pneumococcal Polysaccharide PPSV23 11/18/2013, TD (adult), 2 Lf tetanus tox oid, preservative free, adsorbed 05/18/2007 Tdap 04/10/2012 Zoster, Recombinant 06/08/2020 Social History Tobacco Use Types Packs/Day Years Used Date Smoking Tobacco: Every Day Cigarettes Passive Smoke Exposure: Current Smokeless Tobacco: Never Tobacco Cessation:Ready to Q uit: Not Asked; Counseling Given: Not Answered Comments Unknown Sex and Gender Information Value Date Recorded Sex Assigned at Female 06/10/2022 10:15 AM EDT Legal Sex Female 10:15 AM EDT Gender Identity Female 06/10/2022 10:15 AM EDT Sexual Orientation Choose not to disclose 2021 10:15 AM EDT Last Filed Vital Signs Vital Sign Reading Time Taken Comments Blood Pressure 149/89 11/26/2024 9:50 AM EDT Pulse 99 11/26/2024 9:50 AM EDT Temperature 36.6 ??C (97.9 ??F) 11/26/2024 9:50 AM ED T Respiratory Rate 18 11/26/2024 9:50 AM EDT Oxygen Saturation 97% 11/26/2024 9:50 AM EDT Inhaled Oxygen Concentration - - Weight 81.6 kg (180 lb) 11/26/2024 9:50 AM EDT Height 167.6 cm (5' 6 ) 06/04/2023 4:05 PM EDT Body Mass Index 29.05 06/04/2023 4:05 PM EDT Plan of Treatment Upcoming Encounters Date Type Department Care Team (Late st Contact Info) Description 12/21/2024 10:45 AM EDT Office Visit [facility] [address] [place] [address] Jenny Abdul MD [address] [place] [address] Health Maintenance Due Date Last Done Comments CT Colonography 1968 Depression Screening 1968 FIT DNA/Cologuard 1968 FIT 1968 FOBT 1968 HIV Screening 1968 SDOH Screening 1968 Sigmoidoscopy 1968 Alcohol/Substance Use Screening 1980 Hepatitis C Screening 02/28/1986 Pap Smear 02/28/1989 Cervical Cancer Screening 02/28/1998 HPV/Cotest 02/28/1998 Mammogram 2008 Pneumococcal Vaccine: 50+ Years (2 of 2 - PCV) 11/18/2014 11/18/2013, 12/11/2006 Zoster Vaccines (2 of 2) 08/03/2020 06/08/2020 DTaP/Tdap/Td Vaccines (2 - Td or Tdap) 04/10/2022 04/10/2012, 05/18/2007 COVID-19 Vaccine ( - season) 2024 09/17/2021, 12/16/2020, 11/18/2020 Influenza Vaccine (#1) 2024 , 05/30/2020, 05/17/2020, Additional history exists Tobacco Screening 06/04/2024 06/04/2023 Colonoscopy 04/18/2025 04/18/2020 Colorectal Cancer Screening 04/18/2025 Lipid Panel 12/04/2027 12/03/2022, 06/11, 01/26/2020 RSV Patients and Patients Aged 60 years or older (1 - 1-dose 75+ series) 02/28/2043 Hepatitis B Vaccines Completed 05/18/2007, 01/14/2007, 12/11/2006 HIB Vaccines Aged Out No longer eligi ble based on patient's age to complete this topic HPV Vaccines Aged Out No longer eligi ble based on patient's age to complete this topic Hepatitis A Vaccines Aged Out No long er eligible based on patient's age to complete this topic IPV Vaccines Aged Out No longer eligi ble based on patient's age to complete this topic Meningococcal Vaccine Aged Out No deb kp eligible based on patient's age to complete this topic RSV under 20 months Aged Out No longe r eligible based on patient's age to complete this topic Rotavirus Vaccines Aged Out No longer eligible based on patient's age to complete this topic Procedures Procedure Name Priority Date/Time Associated Diagnosis Comments BASIC METABOLIC PANEL Routine 10/28/2024 9:18 AM EDT Elevated blood pressure reading LIPID PANEL, STANDARD Routine 12/03/2022 8:40 AM EDT Dyslipidemia HM COLONOSCOPY Routine 04/18/2020 from Last 3 Months or Most Recently Relevant to Health Maintenance Results * (ABNORMAL) Basic Metabolic Panel (10/28/2024 9:18 AM EDT) Pathologist [facility] Sodium 140 135 - 145 mmol/L [facility] Potassium 4.2 3.3 - 5.1 mmol/L [facility] Chloride 105 96 - 108 mmol/L [facility] Carbon Dioxide 28 22 - 29 mmol/L [facility] Anion Gap 11(L) 12 - 20 [facility] Urea Nitrogen (BUN) 6(L) 9 - 16 mg/dL [facility] Creatinine, Serum 0.64 0.5 - 1.4 mg/dL [facility] Estimated Glomerular Filt Rate >60 [facility] Comment:Chronic Kidney Disea se: Estimated GFR < 60 mL/min/[id number] Kidney Disease: Estimated GFR < 15 mL/min/1.73m2 Glucose 122(H) 60 - 115 mg/dL [facility] Calcium 10.1 8.4 - 10.2 mg/dL [facility] Blood Venous blood specimen / Unknown 10/28/2024 9:18 AM EDT 10/28/2024 11:19 AM EDT Mary Carmen Humphrey NP LAB BLOOD ORDERABLES Final Resu lt [facility] [address] [place], [place] [phone] * (ABNORMAL) Lipid Panel, Standard (12/03/2022 8:40 AM EDT) Cholesterol, Total 198 <200 mg/dL [facility] HDL Cholesterol 57 > OR = 50 mg/dL [facility] Triglycerides 225(H) <150 mg/dL [facility] Comment: If a non-fasting specimen was collected, consider repeat triglyceride testing on a fasting specimen if clinically indicated. Greer et al. J. of Clin. Lipidol. 2015;9:129-169. LDL Cholesterol 107(H) mg/dL (calc) [facility] Comment: Reference range: <100 Desirable range <100 mg/dL for primary prevention; ?? <70 mg/dL for patients with CHD or diabetic patients with > or = 2 CHD risk factors. LDL-C is now calculated using the Nicolas calculation, which is a validated novel method providing better accuracy than the Friedewald equation in the estimation of LDL-C. Timothy SS et al. TRAVIS. 2013;310(19): 3640-0923 (http://education.[employer]/faq/TIY664) Chol/HDLC Ratio 3.5 <5.0 (calc) [facility] Non-HDL Cholesterol 141(H) <130 mg/dL (calc) [facility] Comment: For patients with diabetes plus 1 major ASCVD risk factor, treating to a non-HDL-C goal of <100 mg/dL (LDL-C of <70 mg/dL) is considered a therapeutic option. Blood Venous blood specimen / Unknown 12/03/2022 8:40 AM EDT 12/03/2022 8:40 AM EDT Narrative [facility] - 12/03/2022 10:41 PM EDT FASTING:YES FASTING: YES Tyron Calix EDUCATION PROFESSOR LAB BLOOD ORDERABLES Final Result [facility] [address], [place] [address] [facility] [address] [place] [phone] * Hm Colonoscopy (04/18/2020) Colonoscopy Normal Normal 04/18/2020 Ashley Drew MD HEALTH MAINTENANCE Edited Resul t - Final from Last 3 Months or Most Recently Relevant to Health Maintenance Insurance [facility] Care Teams Addiction Psychiatrist Relationship Specialty Start Date End Date Jenny Abdul MD [address] [place] [phone] PCP - General Family Medicine 08/11/18
[2024-11-26 12:47] LABS: MANUAL DIFF FLAG NO
[2024-11-26 12:49] LABS: Basophils Percent Auto 0.6 % (0-2); Eosinophils Absolute Auto 0.1 X10*3/uL (0.0-0.4); Eosinophils Percent Auto 1.6 % (0-4); Hematocrit 39.8 % (37.0-47.0); Hemoglobin 12.8 g/dl (12.0-16.0); Imm Gran Abs Auto 0.05 X10*3/uL (0.00-0.03); Imm Gran Pct Auto 0.7 % (0.0-0.4); Lymphocytes Absolute Auto 2.3 X10*3/uL (1.2-4.9); Lymphocytes Percent Auto 33.9 % (20-40); Mean Corpuscular HGB Conc 32.2 g/dl (31.0-35.0); Mean Corpuscular Hemoglobin 25.9 pg (27.0-33.0); Mean Corpuscular Volume 80.6 fL (80.0-98.0); Mean Platelet Volume 9.2 fL (9.4-12.3); Monocytes Absolute Auto 0.4 X10*3/uL (0.1-1.2); Monocytes Percent Auto 6.3 % (2-11); Neutrophils Absolute Auto 3.8 x10*3/uL (2.0-8.3); Neutrophils Percent Auto 56.9 % (45-73); Platelet Count 319 X10*3/uL (160-400); Red Blood Count 4.94 X10*6/uL (4.20-5.50); Red Cell Distribution Width 13.4 % (11.0-16.0); White Blood Count 6.7 X10*3/uL (4.8-10.8)
[2024-11-26 12:56] LABS: Prothrombin Time 11.2 SEC (10.9-12.4)
[2024-11-26 12:59] LABS: Partial Thromboplastin Time 33.5 SEC (26.0-36.8)
[2024-11-26 13:10] LABS: Alanine Aminotransferase 26 U/L (0-31); Albumin Level 4.3 g/dL (3.5-5.0); Anion Gap 12 (12-20); Aspartate Amino Transferase 27 U/L (5-31); Bilirubin Total 0.2 mg/dL (0.0-1.0); Blood Urea Nitrogen 9 mg/dL (9-16); Calcium 9.6 mg/dL (8.4-10.2); Carbon Dioxide 27 mmol/L (22-29); Chloride 106 mmol/L (96-108); Creatinine Clr Calc Pharmacy 111.9; Estimated Glomerular Filt Rate > 60; Glucose Random 92 mg/dL (60-115); Potassium 4.5 mmol/L (3.3-5.1); Sodium 140 mmol/L (135-145); Total Protein 7.3 g/dL (6.5-8.0)
[2024-11-26 14:37] VITALS: BP 154/81; PULSE 84; RESP 16; O2SAT 94
[2024-11-26 16:12] VITALS: BP 127/82; PULSE 82; RESP 15; TEMP 36.8; O2SAT 97
[2024-11-26 16:18] VITALS: BP 127/82; PULSE 82; RESP 15; TEMP 36.8; O2SAT 97
[2024-11-26 18:40] LABS: Alkaline Phosphatase 93 U/L (39-117)
== END 2024-11-26 16:18 | disposition home or self-care (01) ==
PROVIDERS: Physician Assistant; Emergency Provider Emergency Medicine Emergency Medical Services; PCP Family Medicine
DX: I73.9 Peripheral vascular disease, unspecified (principal); R60.0 Localized edema; F17.210 Nicotine dependence, cigarettes, uncomplicated; Z79.899 Other long term (current) drug therapy
CPT/HCPCS: 36415; 80053; 85025; 85610; 85730; 93926; 93971; 99283; 99284

== ENCOUNTER → 2024-11-26 11:27 | Outpatient (BNV) | payer MEDICAID, SELFPAY | PROVIDERS: Emergency Provider Emergency Medicine Emergency Medical Services; PCP Family Medicine; Visit Provider Radiology Diagnostic Radiology | DX: M79.662 Pain in left lower leg (principal) | CPT/HCPCS: 93926; 93971 ==

== ENCOUNTER 2024-12-03 07:50 | Outpatient (REF) | payer MEDICAID, SELFPAY ==
--- OUTSIDE RECORDS SUMMARY | 2024-12-03 07:54 | XMS_ITS | Clinical Summary ---
Author Organization [employer] Address [address] [facility] 7[address] [place] [address] Care Team Providers Care Wage And Salary Administrator Name Role Phone Jenny Abdul MD Primary Care Provider [phone] Allergies No known active allergies Medications dicyclomine [...] HFA) 200 MCG/ACT aerosolIndicatio ns:COPD with asthma ([facility]) INHALE 2 PUFFS BY MOUTH TWICE DAILY. [...] Encounters Date Type Department Care Team Description 11/30/2024 Telephone [facility] [address] [place] [phone] Mary Carmen Humphrey NP 11/26/2024 10:20 AM EDT Office Visit [facility] [address] [address] Wai Anderson MD Pain of left calf (Primary Dx) 11/26/2024 Orders Only GENERIC EXTERNAL DATA DEPARTMENT Provider, Generic External Data 11/26/2024 Travel 11/10/2024 2:30 PM EDT Clinical Support [facility] [address] [place] [phone] Demetria Navarro RN Primary hypertension 11/10/2024 Travel 10/27/2024 4:00 PM EDT Office Visit [facility] [address] [address] Primary hypertension (Primary Dx); Elevated blood pressure reading; COPD with asthma ([facility]); Sore throat from Last 3 Months Immunizations [...] Description 12/21/2024 10:45 AM EDT Office Visit [facility] [address] [place] [address] Jenny Abdul MD [address] [place], [place] [phone] Health Maintenance Due Date Last Done Comments [...] Tdap) 04/10/2022 04/10/2012, 05/18/2007 COVID-19 Vaccine ( season) 2024 09/17/2021, 12/16/2020, 11/18/2020 Influenza Vaccine [...] Procedure Name Priority Date/Time Associated Diagnosis Comments COMPREHENSIVE METABOLIC PANEL Routine 11/26/2024 12:42 PM EDT APTT Routine 11/26/2024 12:42 PM EDT PROTHROMBIN TIME-INR Routine 11/26/2024 12:42 PM EDT CBC WITH AUTO DIFFERENTIAL Routine 11/26/2024 12:42 PM EDT US ARTERIAL DUPLEX LE LT Routine 11/26/2024 12:19 PM EDT US VENOUS DUPLEX LE LT Routine 11:56 AM EDT BASIC METABOLIC PANEL Routine 10/28/2024 9:18 AM EDT Elevated blood pressure reading LIPID PANEL, STANDARD Routine 12/03/2022 8:40 AM EDT Dyslipidemia HM COLONOSCOPY Routine 04/18/2020 from Last 3 Months or Most Recently Relevant to Health Maintenance Results * (ABNORMAL) CBC auto differential (11/26/2024 12:42 PM EDT) White Blood Count 6.7 4.8 - 10.8 X10*3/uL [facility] Red Blood Count 4.94 4.20 - 5.50 X10*6/uL [facility] Hemoglobin 12.8 12.0 - 16.0 g/dl [facility] Hematocrit 39.8 37.0 - 47.0 % [facility] Mean Corpuscular Volume 80.6 80.0 - 98.0 fL [facility] Mean Corpuscular Hemoglobin 25.9(L) 27.0 - 33.0 pg [facility] Mean Corpuscular HGB Conc 32.2 31.0 - 35.0 g/dl [facility] Red Cell Distribution Width 13.4 11.0 - 16.0 % [facility] Platelet Count 319 160 - 400 X10*3/uL [facility] Mean Platelet Volume 9.2(L) 9.4 - 12.3 fL [facility] Neutrophils Percent Auto 56.9 45 - 73 % [facility] Imm Gran Pct Auto 0.7(H) 0.0 - 0.4 % [facility] Lymphocytes Percent Auto 33.9 20 - 40 % [facility] Monocytes Percent Auto 6.3 2 - 11 % [facility] Eosinophils Percent Auto 1.6 0 - 4 % [facility] Basophils Percent Auto 0.6 0 - 2 % [facility] NRBC Pct Auto 0.0 0.0 - 0.2 /100WBC [facility] Neutrophils Absolute Auto 3.8 2.0 - 8.3 x10*3/uL [facility] Imm Gran Abs Auto 0.05(H) 0.00 - 0.03 X10*3/uL [facility] Lymphocytes Absolute Auto 2.3 1.2 - 4.9 X10*3/uL [facility] Monocytes Absolute Auto 0.4 0.1 - 1.2 X10*3/uL [facility] Eosinophils Absolute Auto 0.1 0.0 - 0.4 X10*3/uL [facility] Basophils Absolute Auto 0.0 0.0 - 0.2 X10*3/uL [facility] NRBC Abs Auto 0.000 0.0 - 0.012 X10*3/uL [facility] 11/26/2024 12:4 2 PM EDT 11/26/2024 12:45 PM EDT us Generic External Data Provider LAB BLOOD ORDERAB LES Final Result [facility] [address] [place] [address] [phone] * Partial Thromboplastin Time, Activated (APTT) (11/26/2024 12:42 PM EDT) Pathologist [facility] Partial Thromboplastin Time 33.5 26.0 - 36.8 SEC [facility] Comment:For information rega rding the monitoring of direct thrombininhibitors, please refer to Pharmacy. 11/26/2024 12:4 2 PM EDT 11/26/2024 12:45 PM EDT Generic External Data Provider LAB BLOOD ORDERAB LES Final Result Performing Organization Address [facility] Co de Phone Number [facility] [address] [place] [address] [phone] * Prothrombin Time-INR (11/26/2024 12:42 PM EDT) [facility] Prothrombin Time 11.2 10.9 - 12.4 SEC [facility] INTERNATIONAL NORM RATIO 1.0 0.9 - 1.1 [facility] Comment:INTERNATIONAL NORMAL IZED RATIO (INR) REFERENCE RANGES Reference RangeFor patients not on anticoagulant therapy: 0.9 - 1.1INR ranges for oral anticoagulanttherapy:For prevention and treatment of venous thrombosis and pulmonary embolism: 2.0 - 3.0For acute myocardial infarction with aspirin therapy: 2.0 - 3.0For acute myocardial infarction without aspirin therapy: 3.0 - 4.0For patients with mechanical prosthetic heart valves: 2.5 - 3.5 11/26/2024 12:4 2 PM EDT 11/26/2024 12:45 PM EDT Generic External Data Provider LAB BLOOD ORDERAB LES Final Result Performing Organization Address [facility] Co de Phone Number [facility] [address] [place] [address] [phone] * Comprehensive Metabolic Panel (11/26/2024 12:42 PM EDT) [facility] Sodium 140 135 - 145 mmol/L [facility] Potassium 4.5 3.3 - 5.1 mmol/L [facility] Chloride 106 96 - 108 mmol/L [facility] Carbon Dioxide 27 22 - 29 mmol/L [facility] Anion Gap 12 12 - 20 [facility] Urea Nitrogen (BUN) 9 9 - 16 mg/dL [facility] Creatinine, Serum 0.60 0.5 - 1.4 mg/dL [facility] Creatinine Clr Calc Pharmacy 111.9 [facility] Comment:Provided height and weight: 167.64 cm,80.5 kg.eGFR (calculated from the MDRD study equation) and eCrCl(calculated from the Cockcroft-Gault equation) are based ondifferent parameters and may not yield comparable results.If eCrCl result is absurd, please check patient'sheight/weight. Estimated Glomerular Filt Rate >60 [facility] Comment:Chronic Kidney Disea se: Estimated GFR < 60 mL/min/1.95t7Cndfdl Kidney Disease: Estimated GFR < 15 mL/min/1.73m2 Glucose 92 60 - 115 mg/dL [facility] Calcium 9.6 8.4 - 10.2 mg/dL [facility] Bilirubin, Total 0.2 0.0 - 1.0 mg/dL [facility] Aspartate Amino Transferase 27 5 - 31 U/L [facility] Alanine Aminotransferase 26 0 - 31 U/L [facility] Total Protein 7.3 6.5 - 8.0 g/dL [facility] Albumin Level 4.3 3.5 - 5.0 g/dL [facility] Alkaline Phosphatase 93 39 - 117 U/L [facility] 11/26/2024 12:4 2 PM EDT 11/26/2024 12:45 PM EDT us Generic External Data Provider LAB BLOOD ORDERAB LES Final Result [facility] [address] [place] [phone] * US ARTERIAL DUPLEX LE LT (11/26/2024 12:19 PM EDT) Anatomical Region Laterality Modality Abdomen Ultrasound 11/26/2024 12:1 9 PM EDT Narrative 11/26/2024 1:01 PM EDT ? [facility] ?[address] ?[place] [address] ? Ultrasound Report ? Signed ? Patient: Gregory,Sapphire ?MR#: [id number] ?? 2 ? : 1970 ?Acct:[id number] ? Age/Sex: 54 / F ?ADM Date: 11/26/24 ? Loc: HO.ED ? Attending Dr: ? Ordering Physician: Aris Colunga ?? Date of Service: 11/26/24 ?? Procedure(s): US arterial duplex LE LT ?? Accession Number(s): [id number] ? cc: Aris Colunga; Jenny Abdul MD ? EXAMINATION: ?? US NONINVASIVE ASSESSMENT OF THE LEFT LOWER EXTREMITY . ? CLINICAL INFORMATION: ?? Acute pain, left lower extremity. Hypertension. Smoking, hyperlipidemia. ? COMPARISON: ?? None available. ? TECHNIQUE: ?? Duplex Doppler techniques with waveform analysis and measurement of ?? velocities in the common femoral, profunda femoris, superficial ?? femoral, popliteal and tibial arteries were performed, left lower ?? extremity. . The study was performed only at rest. ? FINDINGS: ? LEFT LOWER EXTREMITY DUPLEX ULTRASOUND: ?? Common femoral artery: 82 cm/s. ?? Triphasic waveform. ? Profunda femoris artery: 74 cm/s. ?? Triphasic waveform. ? Superficial femoral artery (proximal): 60 cm/s. ?? Triphasic waveform. ? Superficial femoral artery (mid): 92 cm/s. ?? Triphasic waveform. ? Superficial femoral artery (distal): 80 cm/s. ?? Triphasic waveform. ? Popliteal artery: 84 cm/s ?? Triphasic waveform. ? Posterior tibial artery: 57 cm/s ?? Triphasic waveform. ? Peroneal artery: 31 cm/s. ?? Biphasic waveform. ? Anterior tibialis artery: 64 cm/s. ?? Biphasic waveform. ? Dorsalis base artery: 33 cm/s. ?? Monophasic waveform. ? US/US arterial duplex LE LT ?? IMPRESSION: ?? 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 ?? Severe inflow disease, dorsalis base artery. ?? No occluded interrogated arteries. ? Electronically signed by: ??Erich Bauer MD ??11/26/2024 12:58 PM ?? EDT RP ? Dictated By: ?Erich Del Real MD ? Signed By: ?<Electronically signed by Erich Jones MD in OV> ? 11/26/24 1258 ? DD/ 1219 ? TD/TT: 11/26/24 1230 ? Cylinder Die Machine Operator: ? Procedure Note Donotuseinterpreter, Image - 11/26/2024 [place] [address] Ultrasound Report Signed Patient: Digna Jenkins#: [id number] 2 : 1970Acct:[id number] Age/Sex: 54 / FADM Date: 11/26/24 Loc: HO.ED Attending Dr: Ordering Physician: Aris Colunga Date of Service: 11/26/24 Procedure(s): US arterial duplex LE LT Accession Number(s): [id number] cc: Aris Colunga; Jenny Abdul MD EXAMINATION: US NONINVASIVE ASSESSMENT OF THE LEFT LOWER EXTREMITY . CLINICAL INFORMATION: Acute pain, left lower extremity. Hypertension. Smoking, hyperlipidemia. COMPARISON: None available. TECHNIQUE: Duplex Doppler techniques with waveform analysis and measurement of velocities in the common femoral, profunda femoris, superficial femoral, popliteal and tibial arteries were performed, left lower extremity. . The study was performed only at rest. FINDINGS: LEFT LOWER EXTREMITY DUPLEX ULTRASOUND: Common femoral artery: 82 cm/s. Triphasic waveform. Profunda femoris artery: 74 cm/s. Triphasic waveform. Superficial femoral artery (proximal): 60 cm/s. Triphasic waveform. Superficial femoral artery (mid): 92 cm/s. Triphasic waveform. Superficial femoral artery (distal): 80 cm/s. Triphasic waveform. Popliteal artery: 84 cm/s Triphasic waveform. Posterior tibial artery: 57 cm/s Triphasic waveform. Peroneal artery: 31 cm/s. Biphasic waveform. Anterior tibialis artery: 64 cm/s. Biphasic waveform. Dorsalis base artery: 33 cm/s. Monophasic waveform. US/US arterial duplex LE LT IMPRESSION: Moderate inflow disease from the posterior tibialis to the anterior tibialis artery. Severe inflow disease, dorsalis base artery. No occluded interrogated arteries. Electronically signed by: Erich Bauer MD 11/26/2024 12:58 PM EDT RP Dictated By: Erich Del Real MD Signed By: <Electronically signed by Erich Jones MDin OV> 11/26/24 1258 DD/ 1219 TD/TT: 11/26/24 1230 Cylinder Die Machine Operator: [facility] External Provider IMG US PROCEDURES Edited Result - Final * US VENOUS DUPLEX LE LT (11/26/2024 11:56 AM EDT) Anatomical Region Laterality Modality Abdomen Ultrasound 11/26/2024 11:5 6 AM EDT Narrative 11/26/2024 12:51 PM EDT ? [facility] ?[address] ?[place] [address] ? Ultrasound Report ? Signed ? Patient: Sapphire Jenkins ?MR#: [id number] ?? 2 ? : 1970 ?Acct:[id number] ? Age/Sex: 54 / F ?ADM Date: 11/26/24 ? Loc: HO.ED ? Attending Dr: ? Ordering Physician: Aris Colunga ?? Date of Service: 11/26/24 ?? Procedure(s): US venous duplex LE LT ?? Accession Number(s): [id number] ? cc: Aris Colunga; Jenny Abdul MD ? EXAMINATION: ?? US TRIPLEX LOWER EXTREMITY, LEFT ? CLINICAL INFORMATION: ?? Pain, left lower extremity. ? COMPARISON: ?? None available. ? TECHNIQUE: ?? Color-flow triplex imaging with spectral analysis and compression ?? Doppler were performed on the left lower extremity. ? FINDINGS: ?? Respiratory variation, normal compression and augmented flow are noted ?? throughout the interrogated common femoral vein, superficial femoral ?? vein, profunda femoral vein, popliteal vein and midcalf peroneal and ?? posterior tibial venous . ? There is no Kaur's cyst. ? US/US venous duplex LE LT ?? IMPRESSION: ?? No acute deep venous thrombosis involving the left lower extremity. ?? Negative for DVT. ? Electronically signed by: ??Erich Bauer MD ??11/26/2024 12:48 PM ?? EDT RP ? Dictated By: ?Erich Del Real MD ? Signed By: ?<Electronically signed by Erich Jones MD in OV> ? 11/26/24 1248 ? DD/ 1156 ? TD/TT: 11/26/24 1217 ? Cylinder Die Machine Operator: ? Procedure Note Donparagter, Image - 11/26/2024 [place] [address] Ultrasound Report Signed Patient: Digna Jenkins#: [id number] 2 : 1970Acct:[id number] Age/Sex: 54 / FADM Date: 11/26/24 Loc: HO.ED Attending Dr: Ordering Physician: Aris Colunga Date of Service: 11/26/24 Procedure(s): US venous duplex LE LT Accession Number(s): [id number] cc: Aris Colunga; Jenny Abdul MD EXAMINATION: US TRIPLEX LOWER EXTREMITY, LEFT CLINICAL INFORMATION: Pain, left lower extremity. COMPARISON: None available. TECHNIQUE: Color-flow triplex imaging with spectral analysis and compression Doppler were performed on the left lower extremity. FINDINGS: Respiratory variation, normal compression and augmented flow are noted throughout the interrogated common femoral vein, superficial femoral vein, profunda femoral vein, popliteal vein and midcalf peroneal and posterior tibial venous . There is no Kaur's cyst. US/US venous duplex LE LT IMPRESSION: No acute deep venous thrombosis involving the left lower extremity. Negative for DVT. Electronically signed by: Erich Bauer MD 11/26/2024 12:48 PM EDT Dictated By: Erich Del Real MD Signed By: <Electronically signed by Erich Jones MDin OV> 11/26/24 1248 DD/ 1156 TD/TT: 11/26/24 1217 Cylinder Die Machine Operator: [facility] External Provider IMG US PROCEDURES Edited Result - Final * (ABNORMAL) Basic Metabolic Panel (10/28/2024 9:18 AM EDT) Pathologist [facility] Sodium 140 135 - 145 mmol/L [facility] Potassium 4.2 3.3 - 5.1 mmol/L [facility] Chloride 105 96 - 108 mmol/L [facility] Carbon Dioxide 28 22 - 29 mmol/L [facility] Anion Gap 11(L) 12 - 20 [facility] Urea Nitrogen (BUN) 6(L) 9 - 16 mg/dL [facility] Creatinine, Serum 0.64 0.5 - 1.4 mg/dL [facility] Estimated Glomerular Filt Rate >60 [facility] Comment:Chronic Kidney Disea se: Estimated GFR < 60 mL/min/1.18c5Vvbwnt Kidney Disease: Estimated GFR < 15 mL/min/1.73m2 Glucose 122(H) 60 - 115 mg/dL [facility] Calcium 10.1 8.4 - 10.2 mg/dL [facility] Blood Venous blood specimen / Unknown 10/28/2024 9:18 AM EDT 10/28/2024 11:19 AM EDT Mary Carmen Humphrey NP LAB BLOOD ORDERABLES Final Resu lt [facility] [address] [place] [phone] * (ABNORMAL) Lipid Panel, Standard (12/03/2022 8:40 AM EDT) Cholesterol, Total 198 <200 mg/dL [employer] [facility] [employer] HDL Cholesterol 57 > OR = 50 mg/dL [employer] [facility] [employer] Triglycerides 225(H) <150 mg/dL [facility] [facility] [place] [employer] Comment: If a non-fasting specimen was collected, consider repeat triglyceride testing on a fasting specimen if clinically indicated. Greer et al. J. of Clin. Lipidol. 2015;9:129-169. LDL Cholesterol 107(H) mg/dL (calc) [employer] Comment: Reference range: <100 Desirable range <100 mg/dL for primary prevention; ?? <70 mg/dL for patients with CHD or diabetic patients with > or = 2 CHD risk factors. LDL-C is now calculated using the Timothy-Sparrow calculation, which is a validated novel method providing better accuracy than the Friedewald equation in the estimation of LDL-C. Timothy SS et al. TRAVIS. 2013;310(19): 6155-2355 (http://education.Tunepresto/faq/VJF696) Chol/HDLC Ratio 3.5 <5.0 (calc) [employer] Non-HDL Cholesterol 141(H) <130 mg/dL (calc) [employer] [facility] Comment: For patients with diabetes plus 1 major ASCVD risk factor, treating to a non-HDL-C goal of <100 mg/dL (LDL-C of <70 mg/dL) is considered a therapeutic option. Blood Venous blood specimen / Unknown 12/03/2022 8:40 AM EDT 12/03/2022 8:40 AM EDT Narrative [facility] - 12/03/2022 10:41 PM EDT FASTING:YES FASTING: YES Tyron [employer]ix INDUSTRIAL RELATIONS ANALYST LAB BLOOD ORDERABLES Final Result [facility] [address], [place] [address] [facility] [address] [place] [phone] * Hm Colonoscopy (04/18/2020) Colonoscopy Normal Normal 04/18/2020 us Ashley Drew MD HEALTH MAINTENANCE Edited Resul t - Final from Last 3 Months or Most Recently Relevant to Health Maintenance [facility] Care Teams Wage And Salary Administrator Relationship Specialty Start Date End Date Jenny Abdul MD [address] [place] [phone] PCP - General Family Medicine 08/11/18
--- OUTSIDE RECORDS SUMMARY | 2024-12-03 07:54 | XMS_ITS | Encounter Summary ---
Author Organization [employer] Address [address] [facility] [address] [place] [address] Care Team Providers Care Clarifier Operator Helper Name Role Phone Jenny Abdul MD Primary Care Provider Encounter Details Date Type Department Care Team (Late st Contact Info) Description 11/30/2024 Telephone [facility] [address] [place] [phone] Mary Carmen Humphrey NP [address] [place] [address] Social History Tobacco Use Types Packs/Day Years [...] Description 12/21/2024 10:45 AM EDT Office Visit [facility] [address] [place] [phone] Jenny Abdul MD [address] [place] [address] documented as of this encounter Visit Diagnoses Not on filedocumented in this encounter Care Teams Clarifier Operator Helper Relationship Specialty Start Date End Date Jenny Abdul MD [address] [place] [phone] PCP - General Family Medicine 08/11/18 documented as of this encounter
== END 2024-12-03 07:51 | disposition home or self-care (01) ==
LOC: HO.MAMMO 07:50
PROVIDERS: PCP Family Medicine; Visit Provider Family Medicine
DX: Z12.31 Encounter for screening mammogram for malignant neoplasm of breast (principal)
CPT/HCPCS: 77063; 77067

== ENCOUNTER → 2024-12-03 08:00 | Outpatient (BNV) | payer MEDICAID, SELFPAY | PROVIDERS: PCP Family Medicine; Visit Provider Internal Medicine | DX: Z12.31 Encounter for screening mammogram for malignant neoplasm of breast (principal) | CPT/HCPCS: 77063; 77067 ==

== ENCOUNTER 2024-12-14 09:23 | Outpatient (AMB) | payer MEDICAID, SELFPAY ==
--- NOTE | 2024-12-14 09:22 | A.OFFVIS_ITS ---
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 Patient was told she has arterial disease. 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 This has been affecting the medial aspect of her calf and causes pain going all the way down into her feet. Pain was so excruciating that she eventually presented to the emergency room on 11/26/2024. At that time she had venous and arterial testing. Venous testing was within normal limits arterial testing was concerning for tibial disease. She was started on aspirin and high-dose statin. She now presents to us for vascular evaluation. Of note she smokes approximately half a pack per day and denies any diabetes or injuries. 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 Review of Systems Const All systems reviewed & are unremarkable except as noted in HPI and below Reports no additional complaints ENT Reports Normal hearing present Card Denies chest pain, Denies chest pain at rest, Denies chest pain with activity and Denies pedal edema Resp Denies cough GI Denies abdominal pain Musc Denies abnormal gait, Denies muscle cramps and Denies radiating pain into limb Skin/Breast Denies skin ulcer and Denies wounds Neuro Reports Normal hearing present and Denies abnormal gait Psych Reports no additional complaints Physical Exam Const General: cooperative, healthy appearing and comfortable Orientation/consciousness: oriented to person, oriented to place and oriented to time HEENT Head: Yes normal to inspection Neck Neck: Yes normal visual inspection Carotids: no bruits Chest Chest palpation & inspection: normal inspection of the chest Resp Effort & Inspection: normal respiratory effort and able to speak in complete sentences Auscultation: clear to auscultation bilaterally, no crackles, no rales, no rhonchi and no wheezes Cardio Other: Bilateral palpable dorsalis pedis pulses Rate: regular rate Rhythm: regular rhythm Heart sounds: S1 normal heart sound present and S2 normal heart sound present Bruits: no carotid bruits Peripheral pulses: Peripheral pulses 2+ throughout GI Inspection: Yes normal to inspection Skin Wounds: no wounds Hair: normal Neuro General: oriented to person, oriented to place and oriented to time Cranial nerves: Yes CN's II-XII intact bilaterally and Yes Normal hearing present Cognition (Neuro): normal cognition Motor exam (neuro): 5/5 motor strength present throughout Extrem Other: venous exam: No significant superficial varicosities or spider telangiectasias, minimal edema General: No clubbing, No cyanosis and No edema Psych Appearance: grossly normal Mental Status: mental status grossly normal Speech and movement: Normal speech and movement present Results Reviewed Results Reviewed: Noninvasive arterial testing dated 11/26/2024 demonstrates tibial disease. I do not think there is severe inflow disease. Written report and images were reviewed. Assessment & Plan Assessment & Plan (1) Peripheral arterial disease: Code(s): I73.9 - Peripheral vascular disease, unspecified Category: Medical Plan: In short patient has a very mild element of peripheral vascular disease. She does have the risk factor of smoking but at the current time has palpable pulses. I do think the arterial ultrasound is a bit of an over read. Her issues did not appear vascular in nature. They appear more neurogenic. Due to her history I will schedule her for 1 year surveillance arterial ultrasound. She will follow up with us in approximately 1 year. Risk factor modification was discussed. (2) Back pain: Code(s): M54.9 - Dorsalgia, unspecified Category: Medical Qualifiers: Back pain location: low back pain Chronicity: chronic Back pain laterality: unspecified Sciatica presence: with sciatica Sciatica laterality: sciatica of left side Qualified Code(s): M54.42 - Lumbago with sciatica, left side; G89.29 - Other chronic pain Plan: In short patient has back pain issues and the pain may be more neurogenic in nature. She does work at [email or web address]. Due to her history of gastritis she is unable to take nonsteroidals. She has been taking Tylenol. I have taken the liberty of referring her to pain management for further evaluation and possible treatment. Thank you for allowing us to assist in her care. If there are any questions or concerns please do not hesitate to contact us. Orders: Orders US arterial duplex LE BI 1 Year I73.9 - Peripheral vascular disease, unspecified Referrals Pain Management Referral G89.29 - Other chronic pain, M54.42 - Lumbago with sciatica, left side Coding Level of Care Code New Pt Level 4 (74135) Complex EM visit Add On G2211 Diagnoses Peripheral arterial disease I73.9 Chronic low back pain with left-sided sciatica, unspecified back pain laterality M54.42; G89.29 Back pain location: low back pain Chronicity: chronic Back pain laterality: unspecified Sciatica presence: with sciatica Sciatica laterality: sciatica of left side
--- OUTSIDE RECORDS SUMMARY | 2024-12-14 10:18 | XMS_ITS | Clinical Summary ---
Author Organization [employer] Address [address] [facility] [address] [place] [address] Care Team Providers Care Chief Accountant Name Role Phone Jenny Abdul MD Primary Care Provider [phone] Allergies No known active allergies Medications dicyclomine [...] HFA) 200 MCG/ACT aerosolIndicatio ns:COPD with asthma (CMS/[facility]ER[facility]) INHALE 2 PUFFS BY MOUTH TWICE DAILY. [...] Type Department Care Team Description 11/30/2024 Telephone [facility] MEDICINE [address] [place] [phone] Mary Carmen Humphrey NP 11/26/2024 10:20 AM EDT Office Visit [facility] WALK-IN [address] [address] Wai Anderson MD Pain of left calf (Primary Dx) 11/26/2024 Orders Only GENERIC EXTERNAL DATA DEPARTMENT Provider, Generic External Data 11/26/2024 Travel 11/10/2024 2:30 PM EDT Clinical Support [facility] MEDICINE [address] [place] [phone] Demetria Navarro RN Primary hypertension 11/10/2024 Travel 10/27/2024 4:00 PM EDT Office Visit [facility] WALK-IN [address] [address] Primary hypertension (Primary Dx); Elevated blood pressure reading; COPD with asthma ([facility]); Sore throat from Last 3 Months Immunizations [...] Description 12/21/2024 10:45 AM EDT Office Visit [facility] MEDICINE [address] [place] [address] Jenny Adbul MD [address] [place] [address] Health Maintenance Due Date Last Done Comments CT Colonography 1968 Depression Screening 1968 FIT DNA/Cologuard 1968 FIT 1968 FOBT 1968 HIV Screening 1968 SDOH Screening 1968 Sigmoidoscopy 1968 Alcohol/Substance Use Screening 1980 Hepatitis C Screening 02/28/1986 Pap Smear 02/28/1989 Cervical Cancer Screening 02/28/1998 HPV/Cotest 02/28/1998 Pneumococcal Vaccine: 50+ Years (2 of 2 - PCV) 11/18/2014 11/18/2013, 12/11/2006 Zoster Vaccines (2 of 2) 08/03/2020 06/08/2020 DTaP/Tdap/Td Vaccines (2 - Td or Tdap) 04/10/2022 04/10/2012, 05/18/2007 COVID-19 Vaccine ( season) 2024 09/17/2021, 12/16/2020, 11/18/2020 Influenza Vaccine (#1) 2024 , 05/30/2020, 05/17/2020, Additional history exists Tobacco Screening 06/04/2024 06/04/2023 Colonoscopy 04/18/2025 04/18/2020 Colorectal Cancer Screening 04/18/2025 Mammogram 12/03/2025 12/03/2024 Lipid Panel 12/04/2027 12/03/2022, 06/11, 01/26/2020 RSV [...] Procedure Name Priority Date/Time Associated Diagnosis Comments BI MAMMOGRAM SCREENING TOMOSYNTHESIS BILATERAL Routine 12/03/2024 8:00 AM EDT COMPREHENSIVE METABOLIC PANEL Routine 11/26/2024 12:42 PM [...] Recently Relevant to Health Maintenance Results * BI Mammogram Screening Tomosynthesis Bilateral (12/03/2024 8:00 AM EDT) Anatomical Region Laterality Modality Breast Bilateral Mammography 12/03/2024 8:00 AM EDT Narrative 12/11/2024 8:48 PM EDT ? [facility] ? [address] ?[place] [address] ?[phone] ? Mammography Report ? Signed ? Patient: Gregory,Sapphire ?MR#: [id number] ?? 2 ? : 1970 ?Acct:[id number] ? Age/Sex: 54 / F ?ADM Date: 04/25/25 ? Loc: HO.MAMMO ? Attending Dr: Jenny Abdul MD ? Ordering Physician: Jenny Abdul MD ?Results: 1Negative ? Date of Service: 12/03/24 ?Follow Up: 1 Year From Orig ?? inal Mammogram ? Procedure(s): MM tomosynthesis screening BI ?? Accession Number(s): [id number] ? cc: Jenny Abdul MD ? EXAMINATION: ?? MM SCREENING DIGITAL BREAST TOMOSYNTHESIS, BILATERAL ? CLINICAL INFORMATION: ? Screening. Asymptomatic. ? COMPARISON: ?? Mammography: ?? Baseline priors are not available at this time on PACS. ? TECHNIQUE: ?? Digital breast mammography with tomosynthesis is performed in both the ?? craniocaudal and mediolateral oblique views along with computer-aided ?? detection (CAD). ? FINDINGS: ?? There are scattered areas of fibroglandular density (ACR BI-RADS breast ?? composition Category b). ? There are no significant masses, abnormal calcifications, or other ?? abnormalities. ? MM/MM tomosynthesis screening BI ?? IMPRESSION: ?? No mammographic evidence of malignancy. ? ASSESSMENT: ? BI-RADS BI-RADS 1 - Negative ? RECOMMENDATION: ?? Routine annual mammography screening. ? 1 year F/U ? This examination should not preclude the clinical evaluation of a ?? suspicious palpable abnormality. ? This patient's information was entered into a reminder system with a ?? target due date for their next mammogram. ? Electronically signed by: ??Lucretia Kerr DO ??12/11/2024 08:45 PM EDT ?? RP ? Dictated By: ?Lucretia Kerr DO ? Signed By: ?<Electronically signed by Lucretia Kerr, DO in OV> ? 12/11/242044 ? DD/ 0800 ? TD/TT: 12/03/24 0817 ? Automatic Line Set Up Mechanic: ? Procedure Note Donotuseinterpreter, Image - [facility]/11/[facility] [address] [place] [address] Mammography Report Signed Patient: Digna Jenkins#: [id number] 2 : 1970Acct:[id number] Age/Sex: 54 / FADM Date: 12/03/24 Loc: [facility] Attending Dr: Jenny Abdul MD Ordering Physician: Jenny Abdul MDResults: 1Negative Date of Service: 12/03/24Follow Up: 1 Year From Orig inal Mammogram Procedure(s): MM tomosynthesis screening BI Accession Number(s): [id number] cc: Jenny Abdul MD EXAMINATION: MM SCREENING DIGITAL BREAST TOMOSYNTHESIS, BILATERAL CLINICAL INFORMATION: Screening. Asymptomatic. COMPARISON: Mammography: Baseline priors are not available at this time on PACS. TECHNIQUE: Digital breast mammography with tomosynthesis is performed in both the craniocaudal and mediolateral oblique views along with computer-aided detection (CAD). FINDINGS: There are scattered areas of fibroglandular density (ACR BI-RADS breast composition Category b). There are no significant masses, abnormal calcifications, or other abnormalities. MM/MM tomosynthesis screening BI IMPRESSION: No mammographic evidence of malignancy. ASSESSMENT: BI-RADS BI-RADS 1 - Negative RECOMMENDATION: Routine annual mammography screening. 1 year F/U This examination should not preclude the clinical evaluation of a suspicious palpable abnormality. This patient's information was entered into a reminder system with a target due date for their next mammogram. Electronically signed by: Lucretia Kerr DO 12/11/2024 08:45 PM EDT RP Dictated By: Lucretia Kerr DO Signed By: <Electronically signed by Lucretia Kerr DO in OV> 12/11/242044 DD/ 0800 TD/TT: 12/03/24 0817 Automatic Line Set Up Mechanic: Jenny Abdul MD [facility] BI PROCEDURES Edited Result - Final * (ABNORMAL) CBC auto differential (11/26/2024 12:42 PM EDT) White Blood Count 6.7 4.8 - 10.8 X10*3/uL [facility] Red Blood Count 4.94 4.20 - 5.50 X10*6/uL [facility] Hemoglobin 12.8 12.0 - 16.0 g/dl [facility] Hematocrit 39.8 37.0 - 47.0 % [facility] Mean Corpuscular Volume 80.6 80.0 - 98.0 fL [facility] Mean Corpuscular Hemoglobin 25.9(L) 27.0 - 33.0 pg [facility] Mean Corpuscular HGB Conc 32.2 31.0 - 35.0 g/dl [facility] Red Cell Distribution Width 13.4 11.0 - 16.0 % [facility] Platelet Count 319 160 - 400 X10*3/uL [facility] Mean Platelet Volume 9.2(L) 9.4 - 12.3 fL [facility] Neutrophils Percent Auto 56.9 45 - 73 % [facility] Imm Gran Pct Auto 0.7(H) 0.0 - 0.4 % [facility] Lymphocytes Percent Auto 33.9 20 - 40 % [facility] Monocytes Percent Auto 6.3 2 - 11 % [facility] Eosinophils Percent Auto 1.6 0 - 4 % [facility] Basophils Percent Auto 0.6 0 - 2 % [facility] NRBC Pct Auto 0.0 0.0 - 0.2 /100WBC [facility] Neutrophils Absolute Auto 3.8 2.0 - 8.3 x10*3/uL [facility] Imm Gran Abs Auto 0.05(H) 0.00 - 0.03 X10*3/uL [facility] Lymphocytes Absolute Auto 2.3 1.2 - 4.9 X10*3/uL [facility] Monocytes Absolute Auto 0.4 0.1 - 1.2 X10*3/uL [facility] Eosinophils Absolute Auto 0.1 0.0 - 0.4 X10*3/uL [facility] Basophils Absolute Auto 0.0 0.0 - 0.2 X10*3/uL [facility] NRBC Abs Auto 0.000 0.0 - 0.012 X10*3/uL [facility] 11/26/2024 12:4 2 PM EDT 11/26/2024 12:45 PM EDT Generic External Data Provider LAB BLOOD ORDERAB LES Final Result Performing Organization Address [facility] Co de Phone Number [facility] [address] [place] [phone] * Partial Thromboplastin Time, Activated (APTT) (11/26/2024 12:42 PM EDT) Pathologist [facility] Partial Thromboplastin Time 33.5 26.0 - 36.8 SEC [facility] Comment:For information rega rding the monitoring of direct thrombininhibitors, please refer to Pharmacy. 11/26/2024 12:4 2 PM EDT 11/26/2024 12:45 PM EDT us Generic External Data Provider LAB BLOOD ORDERAB LES Final Result Performing Organization Address [facility] Co de Phone Number [facility] [address] [place] [phone] * Prothrombin Time-INR (11/26/2024 12:42 PM EDT) Prothrombin Time 11.2 10.9 - 12.4 SEC [facility] INTERNATIONAL NORM RATIO 1.0 0.9 - 1.1 [facility] Comment:INTERNATIONAL NORMAL IZED RATIO (INR) [...] Provider LAB BLOOD ORDERAB LES Final Result [facility] [address] [place] [address] [phone] * Comprehensive Metabolic Panel (11/26/2024 12:42 PM EDT) Sodium 140 135 - 145 mmol/L [facility] Potassium 4.5 3.3 - 5.1 mmol/L [facility] Chloride 106 96 - 108 mmol/L [facility] Carbon Dioxide 27 22 - 29 mmol/L [facility] Anion Gap 12 12 - 20 [facility] Urea Nitrogen (BUN) 9 9 - 16 mg/dL [facility] Creatinine, Serum 0.60 0.5 - 1.4 mg/dL [facility] Creatinine Clr Calc Pharmacy 111.9 [facility] Comment:Provided height and weight: 167.64 cm,80.5 kg.eGFR (calculated from the MDRD study equation) and eCrCl(calculated from the Cockcroft-Gault equation) are based ondifferent parameters and may not yield comparable results.If eCrCl result is absurd, please check patient'sheight/weight. Estimated Glomerular Filt Rate >60 [facility] Comment:Chronic Kidney Disea se: Estimated GFR < 60 mL/min/1.15t4Fhshsp Kidney Disease: Estimated GFR < 15 mL/min/1.73m2 Glucose 92 60 - 115 mg/dL [facility] Calcium 9.6 8.4 - 10.2 mg/dL [facility] Bilirubin, Total 0.2 0.0 - 1.0 mg/dL [facility] Aspartate Amino Transferase 27 5 - 31 U/L [facility] Alanine Aminotransferase 26 0 - 31 U/L [facility] Total Protein 7.3 6.5 - 8.0 g/dL [facility] Albumin Level 4.3 3.5 - 5.0 g/dL [facility] Alkaline Phosphatase 93 39 - 117 U/L [facility] 11/26/2024 12:4 2 PM EDT 11/26/2024 12:45 PM EDT us Generic External Data Provider LAB BLOOD ORDERAB LES Final Result [facility] [address] [place] [address] [phone] * US ARTERIAL DUPLEX LE LT (11/26/2024 12:19 PM EDT) Anatomical Region Laterality Modality Abdomen Ultrasound 11/26/2024 12:1 9 PM EDT Narrative 11/26/2024 1:01 PM EDT ? [facility] ?[address] ?[place] [address] ? Ultrasound Report ? Signed ? Patient: Gregory,Sapphire ?MR#: [id number] ?? 2 ? : 1970 ?Acct:[id number] ? Age/Sex: 54 / F ?ADM Date: 04/18/25 ? Loc: HO.ED ? Attending Dr: ? Ordering Physician: Aris Colunga ?? Date of Service: 04/18/25 ?? Procedure(s): US arterial duplex LE LT ?? Accession Number(s): [id number] ? cc: Aris Colunga; Jenny Abdul MD [...] artery: 33 cm/s. ?? Monophasic waveform. ? / arterial duplex LE LT ?? IMPRESSION: ?? 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 ?? Severe inflow disease, dorsalis base artery. ?? No occluded interrogated arteries. ? Electronically signed by: ??Erich Bauer MD ??11/26/2024 12:58 PM ?? EDT ? Dictated By: ?Erich Del Real MD ? Signed By: ?<Electronically signed by Erich Jones MD in OV> ? 11/26/24 1258 ? DD/ 1219 ? TD/TT: 11/26/24 1230 ? Automatic Line Set Up Mechanic: ? Procedure Note Jocelyn Payne - 11/26/[address] [address] Ultrasound Report Signed Patient: Digna Jenkins#: [id number] 2 : 1970Acct:[id number] Age/Sex: 54 / FADM Date: 11/26/24 Loc: HO.ED Attending Dr: Ordering Physician: Aris Colunga Date of Service: 11/26/24 Procedure(s): US arterial duplex LE LT Accession Number(s): [id number] cc: Aris Colunga; Jenny Abdul MD EXAMINATION: [...] Real MD Signed By: <Electronically signed by Eirch Jones MDin OV> 11/26/24 1258 DD/ 1219 TD/TT: 11/26/24 1230 Automatic Line Set Up Mechanic: [facility] External Provider IMG US PROCEDURES Edited Result - Final * US VENOUS DUPLEX LE LT (11/26/2024 11:56 AM EDT) Anatomical Region Laterality Modality Abdomen Ultrasound 11/26/2024 11:5 6 AM EDT Narrative 11/26/2024 12:51 PM EDT ? [facility] ?[address] ?[place] [address] ? Ultrasound Report ? Signed ? Patient: Gregory,Sapphire ?MR#: [id number] ?? 2 ? : 1970 ?Acct:[id number] ? Age/Sex: 54 / F ?ADM Date: 11/26/24 ? Loc: HO.ED ? Attending Dr: ? Ordering Physician: Aris Colunga ?? Date of Service: 11/26/24 ?? Procedure(s): US venous duplex LE LT ?? Accession Number(s): [id number] ? cc: Aris Colunga; Jenny Abudl MD ? EXAMINATION: ?? US TRIPLEX LOWER [...] DD/ 1156 ? TD/TT: 11/26/24 1217 ? Automatic Line Set Up Mechanic: ? Procedure Note Jocelyn Payne - 11/26/2024 [address] [place] [address] Ultrasound Report Signed Patient: Digna Jenkins#: [id number] 2 : 1970Acct:[id number] Age/Sex: 54 / FADM Date: 11/26/24 Loc: HO.ED Attending Dr: Ordering Physician: Aris Colunga Date of Service: 11/26/24 Procedure(s): US venous duplex LE LT Accession Number(s): [id number] cc: Aris Colunga; Jenny Abdul MD EXAMINATION: [...] Erich Bauer MD 11/26/2024 12:48 PM EDT RP Dictated By: Erich Del Real MD Signed By: <Electronically signed by Erich Jones MDin OV> 11/26/24 1248 DD/ 1156 TD/TT: 11/26/24 1217 Automatic Line Set Up Mechanic: [facility] External Provider IMG US PROCEDURES Edited Result - Final * (ABNORMAL) Basic Metabolic Panel (10/28/2024 9:18 AM EDT) Sodium 140 135 - 145 mmol/L [facility] Potassium 4.2 3.3 - 5.1 mmol/L [facility] Chloride 105 96 - 108 mmol/L [facility] Carbon Dioxide 28 22 - 29 mmol/L [facility] Anion Gap 11(L) 12 - 20 [facility] Urea Nitrogen (BUN) 6(L) 9 - 16 mg/dL [facility] Creatinine, Serum 0.64 0.5 - 1.4 mg/dL [facility] Estimated Glomerular Filt Rate >60 [facility] Comment:Chronic Kidney Disea se: Estimated GFR < 60 mL/min/1.47c8Kkmynb Kidney Disease: Estimated GFR < 15 mL/min/1.73m2 Glucose 122(H) 60 - 115 mg/dL [facility] Calcium 10.1 8.4 - 10.2 mg/dL [facility] Blood Venous blood specimen / Unknown 10/28/2024 9:18 AM EDT 10/28/2024 11:19 AM EDT us Mary Carmen Humphrey SALES MERCH[employer]ISE [employer]OCIATE LAB BLOOD ORDERABLES Final Resu lt [facility] [address] [place] [phone] [phone] * (ABNORMAL) Lipid Panel, Standard (12/03/2022 8:40 AM EDT) Cholesterol, Total 198 <200 mg/dL [email or web address] [employer] [facility] HDL Cholesterol 57 > OR = 50 mg/dL [facility] Triglycerides 225(H) <150 mg/dL [facility] Comment: If a non-fasting specimen was collected, consider repeat triglyceride testing on a fasting specimen if clinically indicated. Greer et al. J. of Clin. Lipidol. 2015;9:129-169. LDL Cholesterol 107(H) mg/dL (calc) [facility] [employer] [facility] Comment: Reference range: <100 Desirable range <100 mg/dL for primary prevention; ?? <70 mg/dL for patients with CHD or diabetic patients with > or = 2 CHD risk factors. LDL-C is now calculated using the Timothy-Kyara calculation, which is a validated novel method providing better accuracy than the Friedewald equation in the estimation of LDL-C. Timothy LEONARD et al. TRAVIS. 2013;310(19): 6004-4729 (http://education.PLYmedia/faq/MQD414) Chol/HDLC Ratio 3.5 <5.0 (calc) [employer] Non-HDL Cholesterol 141(H) <130 mg/dL (calc) [facility] Comment: For patients with diabetes plus 1 major ASCVD risk factor, treating to a non-HDL-C goal of <100 mg/dL (LDL-C of <70 mg/dL) is considered a therapeutic option. Blood Venous blood specimen / Unknown 12/03/2022 8:40 AM EDT 12/03/2022 8:40 AM EDT Narrative [facility] - 12/03/2022 10:41 PM EDT FASTING:YES FASTING: YES us Tyron Calix DIRECTOR OF CATH LAB LAB BLOOD ORDERABLES Final Result [facility] [address], [place] [address] [email or web address] [address] [place] [address] * Hm Colonoscopy (04/18/2020) Colonoscopy Normal Normal 04/18/2020 us Ashley Drew MD HEALTH MAINTENANCE Edited Resul t - Final from Last 3 Months or Most Recently Relevant to Health Maintenance Insurance [facility] Care Teams Chief Accountant Relationship Specialty Start Date End Date Jenny Abdul MD [address] [place] [phone] PCP - General Family Medicine 08/11/18
== END 2024-12-14 10:00 | disposition home or self-care (01) ==
LOC: HO.HVS 09:24
PROVIDERS: PCP Family Medicine; Visit Provider Surgery Vascular Surgery
DX: I73.9 Peripheral vascular disease, unspecified (principal); M54.42 Lumbago with sciatica, left side; G89.29 Other chronic pain
CPT/HCPCS: 99204

== ENCOUNTER → 2024-12-14 09:23 | Outpatient (BNVA) | payer MEDICAID, SELFPAY | PROVIDERS: PCP Family Medicine; Visit Provider Surgery Vascular Surgery | DX: I73.9 Peripheral vascular disease, unspecified (principal); M54.42 Lumbago with sciatica, left side; G89.29 Other chronic pain | CPT/HCPCS: 99202 ==

== ENCOUNTER 2025-01-11 08:20 | Outpatient (AMB) | payer MEDICAID, SELFPAY ==
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
[2025-01-11 08:32] VITALS: BP 140/94; PULSE 93; RESP 16; O2SAT 98; BMI 28.7
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
== END 2025-01-11 09:03 | disposition home or self-care (01) ==
PROVIDERS: PCP Family Medicine; Referring Provider Surgery Vascular Surgery; Visit Provider Nurse Practitioner Family
DX: M47.817 Spondylosis without myelopathy or radiculopathy, lumbosacral region (principal); M54.51 Vertebrogenic low back pain; M62.838 Other muscle spasm; M54.9 Dorsalgia, unspecified; G89.29 Other chronic pain; M25.562 Pain in left knee; M53.3 Sacrococcygeal disorders, not elsewhere classified; M79.662 Pain in left lower leg
CPT/HCPCS: 99204

== ENCOUNTER 2025-01-11 08:20 | Outpatient (REF) | payer MEDICAID, SELFPAY ==
--- NOTE | ~2025-01-11 | XR_ITS ---
CLINICAL HISTORY: M47.817 - Spondylosis without myelopathy or radiculopathy, lumbosacral r... 5 views lumbar spine Comparison: None Findings: There is significant S shaped thoracolumbar spine scoliosis incompletely included on the field of view. No acute fractures or dislocation. There are significant multilevel degenerative changes with multilevel osteophytes, facet bony sclerosis. There is no change in alignment on flexion or extension views. There is an 8.8 cm rounded density within the right mid abdomen. IMPRESSION: Significant S shaped thoracolumbar spine scoliosis incompletely included on the field of view, scoliosis series is recommended correlate clinically. Comparison with any prior exams recommended. Multilevel spondylosis of the lumbar spine no acute fractures no change in alignment on flexion or extension views. 8.8 cm rounded density within the right mid abdomen this is nonspecific may represent bowel versus renal lesion can not exclude gallbladder distention. Further evaluation with abdominal ultrasound is recommended. This document has been electronically signed by: Barry Cramer MD on 01/12/2025 08:47:23
--- NOTE | ~2025-01-11 | XR_ITS ---
CLINICAL HISTORY: M25.562 - Pain in left knee Left knee three views Comparison: None Findings: No acute fracture or dislocation noted. No significant joint effusion identified. Mild degenerative change with joint space loss. This involves all 3 compartments. No soft tissue foreign body. Impression: No acute bony abnormality This document has been electronically signed by: Kyrie Ramos MD on 01/11/2025 21:00:08
== END 2025-01-11 08:21 | disposition home or self-care (01) ==
LOC: HO.XRAY 08:20
PROVIDERS: PCP Family Medicine; Referring Provider Surgery Vascular Surgery; Visit Provider Nurse Practitioner Family
DX: M47.817 Spondylosis without myelopathy or radiculopathy, lumbosacral region (principal); M25.562 Pain in left knee; M54.51 Vertebrogenic low back pain; M53.3 Sacrococcygeal disorders, not elsewhere classified; M62.838 Other muscle spasm; M54.9 Dorsalgia, unspecified; G89.29 Other chronic pain; M79.662 Pain in left lower leg
CPT/HCPCS: 72114; 73562; 99212

== ENCOUNTER → 2025-01-11 09:12 | Outpatient (BNV) | payer MEDICAID, SELFPAY | PROVIDERS: PCP Family Medicine; Referring Provider Surgery Vascular Surgery; Visit Provider Radiology Diagnostic Radiology | DX: M47.817 Spondylosis without myelopathy or radiculopathy, lumbosacral region (principal) | CPT/HCPCS: 72114 ==

== ENCOUNTER → 2025-01-25 17:19 | Outpatient (BNV) | payer MEDICAID, SELFPAY | PROVIDERS: PCP Family Medicine; Visit Provider Radiology Diagnostic Radiology | DX: M48.061 Spinal stenosis, lumbar region without neurogenic claudication (principal) | CPT/HCPCS: 72148 ==

== ENCOUNTER 2025-01-25 17:21 | Outpatient (REF) | payer MEDICAID, SELFPAY ==
--- NOTE | ~2025-01-25 | MR_ITS ---
CLINICAL HISTORY: M47.817 - Spondylosis without myelopathy or radiculopathy, lumbosacral r... MR lumbar spine without contrast. COMPARISON: XR lumbar spine dated 01/11/25 at 09:33 EDT FINDINGS: Dextrocurvature of the lumbar spine measuring approximately 13 degrees as measured from the inferior endplate of the L4 to superior endplate of T12. No spondylolisthesis. Vertebral heights are maintained. Marrow signal is benign. The conus terminates at inferior endplate of L1 and is otherwise unremarkable. Visualized portions of the sacrum are normal. L5-S1: Mild posterior disc bulge with posterior disc annular tear. Mild desiccation of the disc. Facet joint arthrosis. Mild bilateral neural foraminal narrowing. L4-L5: Fluid present within the facet joints bilaterally. Mild facet joint arthrosis. Left paracentral/foraminal disc protrusion measuring 3 mm. No significant neural foraminal narrowing. L3-L4: Fluid present within the facet joints bilaterally. Small anterior marginal osteophytes. Intervertebral disc is normal in height. No significant disc bulge or central canal stenosis. L2-L3: Intervertebral disc is normal in height. No significant disc bulge or central canal stenosis. L1-L2: Intervertebral disc is normal in height. No significant disc bulge or central canal stenosis. Simple hepatic cysts present within the right lobe measuring 0.8 cm. IMPRESSION: 1. No evidence of acute injury to the lumbar spine. 2. Mild to moderate dextrocurvature of the lumbar spine. 3. Small amount of fluid within the facet joints at L3-4 and L4-5 can be seen with facet joint synovitis. 4. Mild degenerative changes of the lower lumbar spine with mild bilateral neural foraminal narrowing at L5-S1. This document has been electronically signed by: Luciano Dugan MD on 01/25/2025 18:26:14
--- OUTSIDE RECORDS SUMMARY | 2025-01-25 18:42 | XMS_ITS | Encounter Summary ---
Author Organization [employer] Address [address] [place] [address] [address] [place] [address] Care Team Providers Care Mortgage Accounting Clerk Name Role Phone Jenny Abdul MD Primary Care Provider [phone] Reason for Visit * Reason Onset Date Comments R/S APPT 01/24/2025 Encounter Details Date Type Department Care Team (Late st Contact Info) Description 01/24/2025 Telephone [facility] [address] [place] [address] [phone] Jenny Abdul MD [address] [place], [place] [phone] R/S APPT Social History Tobacco Use Types Packs/Day Years [...] AM EDT documented as of this encounter Miscellaneous Notes * Telephone Encounter - Marlyn Gillis [place] - 01/24/2025 2:46 PM EDT T/C to pt to schedule a PE appt with PCP. Pt agreed to come in on 02/22/25 at 10am. documented in this encounter Plan of Treatment Upcoming Encounters Date Type Department Care Team (Late st Contact Info) Description 02/22/2025 10:00 AM EDT Office Visit [facility] [address] [place] [address] [phone] Jenny Abdul MD [address] [place], [place] [phone] documented as of this encounter Visit Diagnoses Not on filedocumented in this encounter Care Teams Mortgage Accounting Clerk Relationship Specialty Start Date End Date Jenny Abdul MD [address] [place], [place] [phone] PCP - General Family Medicine 08/11/18 documented as of this encounter
== END 2025-01-25 17:22 | disposition home or self-care (01) ==
LOC: HO.MRI 17:21
PROVIDERS: PCP Family Medicine; Visit Provider Nurse Practitioner Family
DX: M47.817 Spondylosis without myelopathy or radiculopathy, lumbosacral region (principal); M54.51 Vertebrogenic low back pain; M62.838 Other muscle spasm; M54.9 Dorsalgia, unspecified; G89.29 Other chronic pain
CPT/HCPCS: 72148

== ENCOUNTER 2025-02-03 08:45 | Outpatient (REF) | payer MEDICAID, SELFPAY ==
--- NOTE | ~2025-02-03 | US_ITS ---
CLINICAL HISTORY: K63.9 - Disease of intestine, unspecified --- Additional Notes or Special Instructions: Please further evaluate xray findings concern for: 8.8 cm rounded density US abdomen limited Comparison: None provided Findings: The visualized pancreas is normal. The aorta and inferior vena cava are normal caliber. The appearance of the liver suggests fatty infiltration with focal normals. Liver. There is no intrahepatic bile duct dilatation. The common duct is 4.9 mm in diameter. The gallbladder is normal. There is no sonographic Restrepo sign. The main portal vein is antegrade. The right kidney is 11.5 cm in length. No ascites. IMPRESSION: Hepatic steatosis. This document has been electronically signed by: David Beltran MD on 02/04/2025 08:52:37
--- OUTSIDE RECORDS SUMMARY | 2025-02-03 09:16 | XMS_ITS | Clinical Summary ---
Author Organization [employer] Address [address] [facility] [address] [place] [address] Care Team Providers Care Photographic Colorist Name Role Phone Jenny Abdul MD Primary Care Provider [phone] Allergies No known active allergies Medications dicyclomine (Bentyl) 20 MG tablet take 1 tablet by oral route 3 times a day as needed for abdominal discomfort Active Diclofenac Sodium 1 % gel Apply topically every 12 (twelve) hours. Active famotidine (Pepcid) 40 MG tablet Take 1 tablet by mouth at bed time. 022 Active hydrOXYzine HCl (Atarax) 25 MG tablet take 1 or 2 tablets by oral route 3 times every day as needed Active montelukast (Singulair) 10 MG tablet Take 1 tablet by mouth at bed time. Active nicotine polacrilex (Nicorette) 4 MG gum chew 1 piece of gum by oral route every 1- 2 hours as needed and as directed Active omeprazole (PriLOSEC) [address] capsule Take 1 capsule by mouth at bed time. 021 Active atorvastatin (Lipitor) 40 MG tabletIndicatio ns:Dyslipidemia TAKE 1 TABLET BY MOUTH EVERY MORNING 90 tablet 023 Active loratadine (Claritin) 10 MG tabletIndicatio ns:Allergic rhinitis, unspecified seasonality, unspecified trigger TAKE 1 TABLET BY MOUTH EVERY MORNING 90 tablet 023 Active cloNIDine (Catapres) 0.1 MG tabletIndicatio ns:Insomnia, unspecified type TAKE 1 TABLET BY MOUTH ONCE DAILY NEEDED FOR SLEEP 90 tablet 023 Active albuterol (2.5 MG/3ML) 0.083% nebulizer solution inhale 3 milliliter by nebulization route 4 times every day prn as needed 75 mL 2 023 Active citalopram (CeleXA) 10 MG tabletIndicatio ns:Mixed anxiety and depressive disorder TAKE 1 TABLET BY MOUTH EVERY DAY WITH 20 MG TABLET 30 tablet 2 023 Active citalopram (CeleXA) 20 MG tabletIndicatio ns:Mixed anxiety and depressive disorder TAKE 1 TABLET BY MOUTH EVERY DAY WITH 10 MG TABLET 30 tablet 2 023 Active Blood Pressure kitIndications: Elevated blood pressure reading in office with diagnosis of hypertension 1 each 2 times daily. 1 kit 025 2025 Active Mometasone Furoate (Asmanex HFA) 200 MCG/ACT aerosolIndicati ons:COPD with asthma (CMS/HCC) INHALE 2 PUFFS BY MOUTH TWICE DAILY. RINSE MOUTH AFTER USING 13 g 2 025 Active albuterol (ProAir HFA) 108 (90 Base) MCG/ACT inhalerIndicati ons:COPD with asthma (CMS/HCC) Inhale 2 puffs every 4 (four) hours if needed for shortness of breath or wheezing. 18 g 2 025 Active lisinopril 10 MG tabletIndicatio ns:Primary hypertension Take 1 tablet (10 mg) by mouth in the morning. 90 tablet 025 Active lisinopril 10 MG tablet Take 1 tablet (10 mg) by mouth in the morning. 90 tablet 025 2024 Discontinued(R eorder (will not trigger notification to Pharmacy)) Active Problems Problem Noted Date Diagnosed Date [...] Encounters Date Type Department Care Team Description 01/26/2025 Telephone [facility] [address] [place] [phone] Paul Reyes [place] Appointment Request 01/24/[address] [address] Jenny Abdul MD R/S APPT 01/18/2025 Refill [facility] [address] [place] [phone] Jenny Abdul MD Primary hypertension 01/11/2025 Orders Only [facility] External Provider, [facility] 01/07/2025 Telephone [facility] [address] [place] [phone] Jenny Abdul MD Medication Question 12/21/2024 Telephone [facility] [address] [place] [phone] Jenny Abdul MD No Show 12/20/2024 Telephone [facility] [address] [place] [phone] Jenny Abdul MD CHART PREP 12/14/2024 Patient Outreach [facility] [address] [place] [address] Jenny Abdul MD Pre-visit Planning (SDOH will need to be completed in office. ) 11/30/2024 Telephone [facility] [address] [place] [phone] Mary Carmen Humphery NP 11/26/2024 10:20 AM EDT Office Visit [facility] [address] [place] [address] Wai Anderson MD Pain of left calf (Primary Dx) 11/26/2024 Orders Only GENERIC EXTERNAL DATA DEPARTMENT Provider, Generic External Data 11/26/2024 Travel 11/10/2024 2:30 PM EDT Clinical Support [facility] [address] [place] [address] Demetria Navarro RN Primary hypertension 11/10/2024 Travel from Last 3 Months Immunizations Immunization Administration [...] 99 11/26/2024 9:50 AM EDT Temperature 36.6 C (97.9 F) 11/26/2024 9:50 AM EDT Respiratory Rate 18 11/26/2024 9:50 AM EDT [...] Description 02/22/2025 10:00 AM EDT Office Visit [facility] [address] [place] [phone] Jenny Abdul MD [address] [place] [address] Health Maintenance Due Date Last Done Comments [...] Vaccine ( season) 2024 09/17/2021, 12/16/2020, 11/18/2020 Tobacco Screening [...] Procedure Name Priority Date/Time Associated Diagnosis Comments MR LUMBAR SPINE WO CONTRAST Routine 01/25/2025 6:26 PM EDT XR LUMBAR SPINE 6V W BENDING Routine 01/12/2025 8:47 AM EDT XR KNEE 3 VIEWS LEFT Routine 01/11/2025 9:00 PM EDT BI MAMMOGRAM SCREENING TOMOSYNTHESIS BILATERAL Routine 12/03/2024 8:00 AM EDT COMPREHENSIVE METABOLIC PANEL Routine 11/26/2024 12:42 PM EDT APTT Routine 11/26/2024 12:42 PM EDT PROTHROMBIN TIME-INR Routine 11/26/2024 12:42 PM EDT CBC WITH AUTO DIFFERENTIAL Routine 11/26/2024 12:42 PM EDT US ARTERIAL DUPLEX LE LT Routine 11/26/2024 12:19 PM EDT US VENOUS DUPLEX LE LT Routine 11:56 AM EDT LIPID PANEL, STANDARD Routine 12/03/2022 8:40 AM EDT Dyslipidemia HM COLONOSCOPY Routine 04/18/2020 from Last 3 Months or Most Recently Relevant to Health Maintenance Results * MR Lumbar Spine w/o Contrast (01/25/2025 6:26 PM EDT) Anatomical Region Laterality Modality Spine, L-spine Magnetic Resonan ce 01/25/2025 6:26 PM EDT Narrative 01/25/2025 6:27 PM EDT [place] [address] Magnetic Resonance Report Signed Patient: Sapphire Jenkins MR#: [id number] 2 : 1970 Acct:[id number] Age/Sex: 54 / F ADM Date: 01/25/25 Loc: HO.MRI Attending Dr: Torie LUNSFORD Ordering Physician: Torie Ware Date of Service: 01/25/25 Procedure(s): MR lumbar spine wo con Accession Number(s): [id number] cc: Torie Ware; Jenny Abdul MD CLINICAL HISTORY: M47.817 - Spondylosis without myelopathy or radiculopathy, lumbosacral r... MR lumbar spine without contrast. COMPARISON: XR lumbar spine dated 01/11/25 at 09:33 EDT FINDINGS: Dextrocurvature of the lumbar spine measuring approximately 13 degrees as measured from the inferior endplate of the L4 to superior endplate of T12. No spondylolisthesis. Vertebral heights are maintained. Marrow signal is benign. The conus terminates at inferior endplate of L1 and is otherwise unremarkable. Visualized portions of the sacrum are normal. L5-S1: Mild posterior disc bulge with posterior disc annular tear. Mild desiccation of the disc. Facet joint arthrosis. Mild bilateral neural foraminal narrowing. L4-L5: Fluid present within the facet joints bilaterally. Mild facet joint arthrosis. Left paracentral/foraminal disc protrusion measuring 3 mm. No significant neural foraminal narrowing. L3-L4: Fluid present within the facet joints bilaterally. Small anterior marginal osteophytes. Intervertebral disc is normal in height. No significant disc bulge or central canal stenosis. L2-L3: Intervertebral disc is normal in height. No significant disc bulge or central canal stenosis. L1-L2: Intervertebral disc is normal in height. No significant disc bulge or central canal stenosis. Simple hepatic cysts present within the right lobe measuring 0.8 cm. IMPRESSION: 1. No evidence of acute injury to the lumbar spine. 2. Mild to moderate dextrocurvature of the lumbar spine. 3. Small amount of fluid within the facet joints at L3-4 and L4-5 can be seen with facet joint synovitis. 4. Mild degenerative changes of the lower lumbar spine with mild bilateral neural foraminal narrowing at L5-S1. This document has been electronically signed by: Luciano Dugan MD on 01/25/2025 18:26:14 Dictated By: Luciano Dugan MD Signed By: <Electronically signed by Luciano Dugan MD in OV> 01/25/251826 DD/ 25 TD/TT: 01/25/251825 Cemetery Manager: Procedure Note Donotuseinterpreter, Image - 01/25/[address] [address] Magnetic Resonance Report Signed Patient: Digna Jenkins#: [id number] 2 : 1970Acct:[id number] Age/Sex: 54 / FADM Date: 01/25/25 Loc: HO.MRI Attending Dr: Torie LUNSFORD Ordering Physician: Torie Ware Date of Service: 01/25/25 Procedure(s): MR lumbar spine wo con Accession Number(s): [id number] cc: Toire Ware; Jenny Abdul MD CLINICAL HISTORY: M47.817 - Spondylosis without myelopathy orradiculopathy, lumbosacral r... MR lumbar spine without contrast. COMPARISON: XR lumbar spine dated 01/11/25 at 09:33 EDT FINDINGS: Dextrocurvature of the lumbar spine measuring approximately 13 degrees as measured from the inferior endplate of the L4 to superior endplate of T12. No spondylolisthesis. Vertebral heights are maintained. Marrow signal is benign. The conus terminates at inferior endplate of L1 and is otherwise unremarkable. Visualized portions of the sacrum are normal. L5-S1: Mild posterior disc bulge with posterior disc annular tear. Mild desiccation of the disc. Facet joint arthrosis. Mild bilateral neural foraminal narrowing. L4-L5: Fluid present within the facet joints bilaterally. Mild facet joint arthrosis. Left paracentral/foraminal disc protrusion measuring 3 mm. No significant neural foraminal narrowing. L3-L4: Fluid present within the facet joints bilaterally. Small anterior marginal osteophytes. Intervertebral disc is normal in height. No significant disc bulge or central canal stenosis. L2-L3: Intervertebral disc is normal in height. No significant disc bulge or central canal stenosis. L1-L2: Intervertebral disc is normal in height. No significant disc bulge or central canal stenosis. Simple hepatic cysts present within the right lobe measuring 0.8 cm. IMPRESSION: 1. No evidence of acute injury to the lumbar spine. 2. Mild to moderate dextrocurvature of the lumbar spine. 3. Small amount of fluid within the facet joints at L3-4 and L4-5 can be seen with facet joint synovitis. 4. Mild degenerative changes of the lower lumbar spine with mild bilateral neural foraminal narrowing at L5-S1. This document has been electronically signed by: Luciano Dugan MD on 01/25/2025 18:26:14 Dictated By: Luciano Dugan MD Signed By: <Electronically signed by Luciano Dugan MD in OV> 01/25/251826 DD/ 25 TD/TT: 01/25/251825 Cemetery Manager: us [facility] External Provider IMG MRI PROCEDURES Final Result * XR LUMBAR SPINE 6V W BENDING (01/12/2025 8:47 AM EDT) Anatomical Region Laterality Modality Abdomen Radiographic Stephanie ging 01/12/2025 8:47 AM EDT Narrative 01/12/2025 8:49 AM EDT [address] [address] XRay Report Signed with Addenda Patient: Sapphire Jenkins MR#: [id number] 2 : 1970 Acct:[id number] Age/Sex: 54 / F ADM Date: 01/11/25 Loc: SUKHJINDER Attending Dr: Torie LUNSFORD Ordering Physician: Torie Ware Date of Service: 01/11/25 Procedure(s): XR lumbar spine 6V w bending Accession Number(s): [id number] cc: Torie Ware; Jenny Abdul MD ADDENDUM This document has been electronically signed by: Barry Cramer MD on 01/12/2025 08:47:23 ADDENDUM: Receipt of this report by the clinical staff was confirmed with Hema Tafoya- job placement officer on Jan 13, 2025 09:15:00 EDT. This document has been electronically signed by: Keke Hernandez on 01/13/2025 09:15:34 Addendum Dictated By: Barry Cramer MD Addendum Signed By: <Electronically signed by Barry Cramer MD in OV> 01/13/25914 Addendum Cosigned By: DD/ /03/846 TD/TT: 01/13/2501/02/915 CLINICAL HISTORY: M47.817 - Spondylosis without myelopathy or radiculopathy, lumbosacral r... 5 views lumbar spine Comparison: None Findings: There is significant S shaped thoracolumbar spine scoliosis incompletely included on the field of view. No acute fractures or dislocation. There are significant multilevel degenerative changes with multilevel osteophytes, facet bony sclerosis. There is no change in alignment on flexion or extension views. There is an 8.8 cm rounded density within the right mid abdomen. IMPRESSION: Significant S shaped thoracolumbar spine scoliosis incompletely included on the field of view, scoliosis series is recommended correlate clinically. Comparison with any prior exams recommended. Multilevel spondylosis of the lumbar spine no acute fractures no change in alignment on flexion or extension views. 8.8 cm rounded density within the right mid abdomen this is nonspecific may represent bowel versus renal lesion can not exclude gallbladder distention. Further evaluation with abdominal ultrasound is recommended. This document has been electronically signed by: Barry Cramer MD on 01/12/2025 08:47:23 Dictated By: Barry Cramer MD Signed By: <Electronically signed by Barry Cramer MD in OV> 01/12/2549 DD/ 6 TD/TT: 01/12/25846 Cemetery Manager: Procedure Note Donotuseinterpreter, Image - 01/13/2025 [place] [address] XRay Report Signed with Addenda Patient: Digna Jenkins#: [id number] 2 : 1970Acct:[id number] Age/Sex: 54 / FADM Date: 01/11/25 Loc: SUKHJINDER Attending Dr: Torie LUNSFORD Ordering Physician: Torie Ware Date of Service: 01/11/25 Procedure(s): XR lumbar spine 6V w bending Accession Number(s): [id number] cc: Torie Ware; Jenny Abdlu MD ADDENDUM This document has been electronically signed by: Barry Cramer MD on 01/12/2025 08:47:23 ADDENDUM: Receipt of this report by the clinical staff was confirmed with Hema Tafoya- job placement officer on Jan 13, 2025 09:15:00 EDT. This document has been electronically signed by: Keke Hernandez on 01/13/2025 09:15:34 Addendum Dictated By: Barry Cramer MD Addendum Signed By: <Electronically signed by Barry Cramer MD in OV> 01/13/25914 Addendum Cosigned By: DD/ /03/846 TD/TT: 01/13/2501/02/915 CLINICAL HISTORY: M47.817 - Spondylosis without myelopathy orradiculopathy, lumbosacral r... 5 views lumbar spine Comparison: None Findings: There is significant S shaped thoracolumbar spine scoliosis incompletely included on the field of view. No acute fractures or dislocation. There are significant multilevel degenerative changes with multilevel osteophytes, facet bony sclerosis. There is no change in alignment on flexion or extension views. There is an 8.8 cm rounded density within the right mid abdomen. IMPRESSION: Significant S shaped thoracolumbar spine scoliosis incompletely included on the field of view, scoliosis series is recommended correlate clinically. Comparison with any prior exams recommended. Multilevel spondylosis of the lumbar spine no acute fractures no change in alignment on flexion or extension views. 8.8 cm rounded density within the right mid abdomen this is nonspecific may represent bowel versus renal lesion can not exclude gallbladder distention. Further evaluation with abdominal ultrasound is recommended. This document has been electronically signed by: Barry Cramer MD on 01/12/2025 08:47:23 Dictated By: Barry Cramer MD Signed By: <Electronically signed by Barry Cramer MD in OV> 01/12/2549 DD/ 6 TD/TT: 01/12/25846 Cemetery Manager: [facility] External Provider IMG XR PROCEDURES Edited Result - Final * XR Knee 3 Views Left (01/11/2025 9:00 PM EDT) Anatomical Region Laterality Modality Lower Extremities, Knee [facility] 01/11/2025 9:00 PM EDT Narrative 01/11/2025 9:01 PM EDT [address] [address] XRay Report Signed Patient: Sapphire Jenkins MR#: [id number] 2 : 1970 Acct:[id number] Age/Sex: 54 / F ADM Date: 01/11/25 Loc: SUKHJINDER Attending Dr: Torie Ware [employer] Ordering Physician: Torie Ware Date of Service: 01/11/25 Procedure(s): XR knee LT 3V Accession Number(s): [id number] cc: Torie Ware; Jenny Abdul MD CLINICAL HISTORY: M25.562 - Pain in left knee Left knee three views Comparison: None Findings: No acute fracture or dislocation noted. No significant joint effusion identified. Mild degenerative change with joint space loss. This involves all 3 compartments. No soft tissue foreign body. Impression: No acute bony abnormality This document has been electronically signed by: Kyrie Ramos MD on 01/11/2025 21:00:08 Dictated By: Kyrie Ramos MD Signed By: <Electronically signed by Kyrie Ramos MD in OV> 01/11/252099 DD/ 99 TD/TT: 01/11/252099 Cemetery Manager: Procedure Note Donotuseinterpreter, Image - 01/11/2025 [place] [address] XRay Report Signed Patient: Digna Jenkins#: [id number] 2 : 1970Acct:[id number] Age/Sex: 54 / FADM Date: 01/11/25 Loc: SUKHJINDER Attending Dr: Torie LUNSFORD Ordering Physician: Torie Ware Date of Service: 01/11/25 Procedure(s): XR knee LT 3V Accession Number(s): [id number] cc: Torie Ware; Jenny Abdul MD CLINICAL HISTORY: M25.562 - Pain in left knee Left knee three views Comparison: None Findings: No acute fracture or dislocation noted. No significant joint effusion identified. Mild degenerative change with joint space loss. This involves all 3 compartments. No soft tissue foreign body. Impression: No acute bony abnormality This document has been electronically signed by: Kyrie Ramos MD on 01/11/2025 21:00:08 Dictated By: Kyrie Ramos MD Signed By: <Electronically signed by Kyrie Ramos MD in OV> 01/11/252099 DD/ 99 TD/TT: 01/11/252099 Cemetery Manager: us [facility] External Provider IMG XR PROCEDURES Edited Result - Final * BI Mammogram Screening Tomosynthesis Bilateral (12/03/2024 8:00 AM EDT) Anatomical Region Laterality Modality Breast Bilateral Mammography 12/03/2024 8:00 AM EDT Narrative 12/11/2024 8:48 PM EDT [address] [place] [address] Mammography Report Signed Patient: Sapphire Jenkins MR#: [id number] 2 : 1970 Acct:[id number] Age/Sex: 54 / F ADM Date: 12/03/24 Loc: SURA[facility] Attending Dr: Jenny Abdul MD Ordering Physician: Jenny Abdul MD Results: 1Negative Date of Service: 12/03/24 Follow Up: 1 Year From Orig ina Mammogram Procedure(s): MM tomosynthesis screening BI Accession Number(s): [id number] cc: Jenny Abdul MD EXAMINATION: MM SCREENING [...] OV> 12/11/242044 DD/ 08 TD/TT: 12/03/24 0817 Cemetery Manager: Procedure Note Donotuseinterpreter, Image - 12/11/2024 [facility] [address] [place] [address] Mammography Report Signed Patient: Digna Jenkins#: [id number] 2 : 1970Acct:[id number] Age/Sex: 54 / FADM Date: 12/03/24 Loc: BETH Attending Dr: Jenny Abdul MD Ordering Physician: Jenny Abdul MDResults: 1Negative Date of Service: 12/03/24Follow Up: 1 Year From Orig ina Mammogram Procedure(s): MM tomosynthesis screening BI Accession Number(s): [id number] cc: Jenny Abdul MD EXAMINATION: MM SCREENING [...] OV> 12/11/242044 DD/ 08 TD/TT: 12/03/24 0817 Cemetery Manager: Jenny Abdul MD [facility] PROCEDURES Edited Result - Final * (ABNORMAL) CBC auto differential (11/26/2024 12:42 PM EDT) White Blood Count 6.7 4.8 - 10.8 X10*3/uL [facility] Red Blood Count 4.94 4.20 - 5.50 X10*6/uL [facility] Hemoglobin 12.8 12.0 - 16.0 g/dl [facility] Hematocrit 39.8 37.0 - 47.0 % [facility] Mean Corpuscular Volume 80.6 80.0 - 98.0 fL [facility] Mean Corpuscular Hemoglobin 25.9(L) 27.0 - 33.0 pg [facility] Mean Corpuscular HGB Conc 32.2 31.0 - 35.0 g/dl [facility] Red Cell Distribution Width 13.4 11.0 - 16.0 % [facility] Platelet Count 319 160 - 400 X10*3/uL [facility] Mean Platelet Volume 9.2(L) 9.4 - 12.3 fL [facility] Neutrophils Percent Auto 56.9 45 - 73 % [facility] Imm Gran Pct Auto 0.7(H) 0.0 - 0.4 % [facility] Lymphocytes Percent Auto 33.9 20 - 40 % [facility] Monocytes Percent Auto 6.3 2 - 11 % [facility] Eosinophils Percent Auto 1.6 0 - 4 % [facility] Basophils Percent Auto 0.6 0 - 2 % [facility] NRBC Pct Auto 0.0 0.0 - 0.2 /100WBC [facility] Neutrophils Absolute Auto 3.8 2.0 - 8.3 x10*3/uL [facility] Imm Gran Abs Auto 0.05(H) 0.00 - 0.03 X10*3/uL [facility] Lymphocytes Absolute Auto 2.3 1.2 - 4.9 X10*3/uL [facility] Monocytes Absolute Auto 0.4 0.1 - 1.2 X10*3/uL [facility] Eosinophils Absolute Auto 0.1 0.0 - 0.4 X10*3/uL [facility] Basophils Absolute Auto 0.0 0.0 - 0.2 X10*3/uL [facility] NRBC Abs Auto 0.000 0.0 - 0.012 X10*3/uL [facility] 11/26/2024 12:4 2 PM EDT 11/26/2024 12:45 PM EDT Generic External Data Provider LAB BLOOD ORDERAB LES Final Result Performing Organization Address [facility] Co de Phone Number [facility] [address] [place] [phone] * Partial Thromboplastin Time, Activated (APTT) (11/26/2024 12:42 PM EDT) Partial Thromboplastin Time 33.5 26.0 - 36.8 SEC [facility] Comment:For information rega rding the monitoring of direct thrombininhibitors, please refer to Pharmacy. 11/26/2024 12:4 2 PM EDT 11/26/2024 12:45 PM EDT Generic External Data Provider LAB BLOOD ORDERAB LES Final Result Performing Organization Address [facility] Co de Phone Number [facility] [address] [place] [phone] * Prothrombin Time-INR (11/26/2024 12:42 PM EDT) Prothrombin Time 11.2 10.9 - 12.4 SEC [facility] INTERNATIONAL NORM RATIO 1.0 0.9 - 1.1 [facility] Comment:INTERNATIONAL NORMAL IZED RATIO (INR) REFERENCE [...] Provider LAB BLOOD ORDERAB LES Final Result [facility] [address] [place] [phone] * Comprehensive Metabolic Panel (11/26/2024 12:42 PM EDT) Sodium 140 135 - 145 mmol/L [facility] Potassium 4.5 3.3 - 5.1 mmol/L [facility] Chloride 106 96 - 108 mmol/L [facility] Carbon Dioxide 27 22 - 29 mmol/L [facility] Anion Gap 12 12 - 20 [facility] Urea Nitrogen (BUN) 9 9 - 16 mg/dL [facility] Creatinine, Serum 0.60 0.5 - 1.4 mg/dL [facility] Creatinine Clr Calc Pharmacy 111.9 [facility] Comment:Provided height and weight: 167.64 cm,80.5 kg.eGFR (calculated from the MDRD study equation) and eCrCl(calculated from the Cockcroft-Gault equation) are based ondifferent parameters and may not yield comparable results.If eCrCl result is absurd, please check patient'sheight/weight. Estimated Glomerular Filt Rate >60 [facility] [facility] Comment:Chronic Kidney Disea se: Estimated GFR < 60 mL/min/1.03f2Aisdzm Kidney Disease: Estimated GFR < 15 mL/min/1.73m2 Glucose 92 60 - 115 mg/dL [facility] Calcium 9.6 8.4 - 10.2 mg/dL [facility] Bilirubin, Total 0.2 0.0 - 1.0 mg/dL [facility] Aspartate Amino Transferase 27 5 - 31 U/L [facility] Alanine Aminotransferase 26 0 - 31 U/L [facility] Total Protein 7.3 6.5 - 8.0 g/dL [facility] Albumin Level 4.3 3.5 - 5.0 g/dL [facility] Alkaline Phosphatase 93 39 - 117 U/L [facility] 11/26/2024 12:4 2 PM EDT 11/26/2024 12:45 PM EDT us Generic External Data Provider LAB BLOOD ORDERAB LES Final Result Performing Organization Address City/State/[facility] Co de Phone Number [facility] [address] [place] [phone] * US ARTERIAL DUPLEX LE LT (11/26/2024 12:19 PM EDT) Anatomical Region Laterality Modality Abdomen Ultrasound 11/26/2024 12:1 9 PM EDT Narrative 11/26/2024 1:01 PM EDT [address] [address] Ultrasound Report Signed Patient: Sapphire Jenkins MR#: [id number] 2 : 1970 Acct:[id number] Age/Sex: 54 / F ADM Date: 11/26/24 Loc: .ED Attending Dr: Ordering Physician: Aris Colunga Date of Service: 11/26/24 Procedure(s): US arterial duplex LE LT Accession Number(s): [id number] cc: Aris Colunga; Jenny Abdul MD EXAMINATION: [...] Signed By: <Electronically signed by Erich Jones MD in OV> 11/26/24 1258 DD/ 1219 TD/TT: 11/26/24 1230 Cemetery Manager: Procedure Note Donotuseinterpreter, Image - 11/26/2024 [place] [address] Ultrasound Report Signed Patient: Digna Jenkins#: [id number] 2 : 1970Acct:[id number] Age/Sex: 54 / FADM Date: 11/26/24 Loc: .ED Attending Dr: Ordering Physician: Aris Colunga Date of Service: 11/26/24 Procedure(s): US arterial duplex LE LT Accession Number(s): [id number] cc: Aris Colunga; Jenny Abdul MD EXAMINATION: [...] Erich Bauer MD 11/26/2024 12:58 PM EDT Dictated By: Erich Del Real MD Signed By: <Electronically signed by Erich Jones MDin OV> 11/26/24 1258 DD/ 1219 TD/TT: 11/26/24 1230 Cemetery Manager: [facility] External Provider IMG US PROCEDURES Edited Result - Final * US VENOUS DUPLEX LE LT (11/26/2024 11:56 AM EDT) Anatomical Region Laterality Modality Abdomen Ultrasound 11/26/2024 11:5 6 AM EDT Narrative 11/26/2024 12:51 PM EDT [address] [address] Ultrasound Report Signed Patient: Sapphire Jenkins MR#: [id number] 2 : 1970 Acct:[id number] Age/Sex: 54 / F ADM Date: 11/26/24 Loc: .ED Attending Dr: Ordering Physician: Aris Colunga Date of Service: 11/26/24 Procedure(s): US venous duplex LE LT Accession Number(s): [id number] cc: Aris Colunga; Jenny Abdul MD EXAMINATION: [...] Signed By: <Electronically signed by Erich Jones MD in OV> 11/26/24 1248 DD/ 1156 TD/TT: 11/26/24 1217 Cemetery Manager: Procedure Note Donotuseinterpreter, Image - 11/26/2024 [place] [address] Ultrasound Report Signed Patient: Digna Jenkins#: [id number] 2 : 1970Acct:[id number] Age/Sex: 54 / FADM Date: 11/26/24 Loc: .ED Attending Dr: Ordering Physician: Aris Colunga Date of Service: 11/26/24 Procedure(s): US venous duplex LE LT Accession Number(s): [id number] cc: Aris Colunga; Jenny Abdul MD EXAMINATION: [...] 11/26/24 1248 DD/ 1156 TD/TT: 11/26/24 1217 Cemetery Manager: [facility] External Provider IMG US PROCEDURES Edited Result - Final * (ABNORMAL) Lipid Panel, Standard (12/03/2022 8:40 AM EDT) Cholesterol, Total 198 <200 mg/dL [facility] HDL Cholesterol 57 > OR = 50 mg/dL [facility] Triglycerides 225(H) <150 mg/dL [facility] Comment: If a non-fasting specimen was collected, consider repeat triglyceride testing on a fasting specimen if clinically indicated. Butterfield et al. J. of Clin. Lipidol. 2015;9:129-169. LDL Cholesterol 107(H) mg/dL (calc) [facility] Comment: Reference range: <100 Desirable range <100 mg/dL for primary prevention; <70 mg/dL for patients with CHD or diabetic patients with > or = 2 CHD risk factors. LDL-C is now calculated using the Timothy-Kyara calculation, which is a validated novel method providing better accuracy than the Friedewald equation in the estimation of LDL-C. Timothy LEONARD et al. TRAVIS. 2013;310(19): 1486-2224 (http://education.TagMan/faq/SOR679) Chol/HDLC Ratio 3.5 <5.0 (calc) [facility] Non-HDL Cholesterol 141(H) <130 mg/dL (calc) [facility] Comment: For patients with diabetes plus 1 major ASCVD risk factor, treating to a non-HDL-C goal of <100 mg/dL (LDL-C of <70 mg/dL) is considered a therapeutic option. 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
== END 2025-02-03 08:46 | disposition home or self-care (01) ==
LOC: HO.HMGCX 08:45
PROVIDERS: PCP Family Medicine; Visit Provider Nurse Practitioner Family
DX: K63.9 Disease of intestine, unspecified (principal); N28.9 Disorder of kidney and ureter, unspecified
CPT/HCPCS: 76705

== ENCOUNTER → 2025-02-03 08:49 | Outpatient (BNV) | payer MEDICAID, SELFPAY | PROVIDERS: PCP Family Medicine; Visit Provider Specialist | DX: K76.0 Fatty (change of) liver, not elsewhere classified (principal) | CPT/HCPCS: 76705 ==

== ENCOUNTER 2025-02-28 09:18 | Outpatient (AMB) | payer MEDICAID, SELFPAY ==
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
[2025-02-28 09:23] VITALS: BP 144/88; PULSE 94; O2SAT 100; BMI 29.2
--- OUTSIDE RECORDS SUMMARY | 2025-02-28 09:42 | XMS_ITS | Clinical Summary ---
Author Organization [employer] Address [address] [place] [address] Care Team Providers Care Exercise Manager Name Role Phone Jenny Abdul MD Primary Care Provider [phone] Allergies No known active allergies Medications * This document contains information received from the source organization and may not represent a complete record from that organization. dicyclomine (Bentyl) 20 MG tablet take 1 tablet by oral route 3 times a day as needed for abdominal discomfort 021 Active famotidine (Pepcid) 40 MG tablet Take 1 tablet by mouth at bed time. 022 Active montelukast (Singulair) 10 MG tablet Take 1 tablet by mouth at bed time. 021 Active albuterol (2.5 MG/3ML) 0.083% nebulizer solution inhale 3 milliliter by nebulization route 4 times every day prn as needed 75 mL 2 023 Active Blood Pressure kitIndications: Elevated blood pressure reading in office with diagnosis of hypertension 1 each 2 times daily. 1 kit 025 2025 Active hydrOXYzine HCl (Atarax) 25 MG tablet Take 1 tablet (25 mg) by mouth every 8 (eight) hours if needed for anxiety. 90 tablet 3 025 Active albuterol (ProAir HFA) 108 (90 Base) MCG/ACT inhalerIndicati ons:COPD with asthma (CMS/HCC) Inhale 2 puffs every 4 (four) hours if needed for shortness of breath or wheezing. 18 g 2 025 Active citalopram (CeleXA) 20 MG tabletIndicatio ns:Mixed anxiety and depressive disorder TAKE 1 TABLET BY MOUTH EVERY DAY WITH 10 MG TABLET 30 tablet 2 Active loratadine (Claritin) 10 MG tabletIndicatio ns:Allergic rhinitis, unspecified seasonality, unspecified trigger Take 1 tablet (10 mg) by mouth in the morning. 90 tablet Active atorvastatin (Lipitor) 40 MG tabletIndicatio ns:Dyslipidemia Take 1 tablet (40 mg) by mouth in the morning. 90 tablet Active cloNIDine (Catapres) 0.1 MG tabletIndicatio ns:Insomnia, unspecified type TAKE 1 TABLET BY MOUTH ONCE DAILY NEEDED FOR SLEEP 90 tablet Active lisinopril 20 MG tabletIndicatio ns:Primary hypertension Take 1 tablet (20 mg) by mouth in the morning. 90 tablet 3 Active Diclofenac Sodium 1 % gel Apply to affected area once or twice daily 350 g Active omeprazole (PriLOSEC) [address] capsule Take 1 capsule (20 mg) by mouth before breakfast. 90 capsule Active cyclobenzaprine (Flexeril) 5 MG tablet Take 1 or 2 tablets by mouth in the evening as needed for muscle spasm 90 tablet 3 Active celecoxib (CeleBREX) 100 MG capsule Take 1 or 2 capsules by mouth twice daily as needed for pain 60 capsule 1 Active aspirin 81 MG chewable tablet Chew 1 tablet (81 mg) Once per day. 90 tablet 3 025 2025 Active nicotine (Nicoderm CQ) 21 MG/24HR patch Place 1 patch on the skin 1 (one) time each day at the same time. 30 patch 1 Active Diclofenac Sodium 1 % gel Apply topically every 12 (twelve) hours. 021 2024 Discontinued(R eorder (will not trigger notification to Pharmacy)) hydrOXYzine HCl (Atarax) 25 MG tablet take 1 or 2 tablets by oral route 3 times every day as needed 022 2024 Discontinued(R eorder (will not trigger notification to Pharmacy)) nicotine polacrilex (Nicorette) 4 MG gum chew 1 piece of gum by oral route every 1- 2 hours as needed and as directed 020 2024 Discontinued omeprazole (PriLOSEC) [address] capsule Take 1 capsule by mouth at bed time. 021 2024 Discontinued(R eorder (will not trigger notification to Pharmacy)) atorvastatin (Lipitor) 40 MG tabletIndicatio ns:Dyslipidemia TAKE 1 TABLET BY MOUTH EVERY MORNING 90 tablet 023 2024 Discontinued(R eorder (will not trigger notification to Pharmacy)) loratadine (Claritin) 10 MG tabletIndicatio ns:Allergic rhinitis, unspecified seasonality, unspecified trigger TAKE 1 TABLET BY MOUTH EVERY MORNING 90 tablet 023 2024 Discontinued(R eorder (will not trigger notification to Pharmacy)) cloNIDine (Catapres) 0.1 MG tabletIndicatio ns:Insomnia, unspecified type TAKE 1 TABLET BY MOUTH ONCE DAILY NEEDED FOR SLEEP 90 tablet 023 2024 Discontinued(R eorder (will not trigger notification to Pharmacy)) citalopram (CeleXA) 10 MG tabletIndicatio ns:Mixed anxiety and depressive disorder TAKE 1 TABLET BY MOUTH EVERY DAY WITH 20 MG TABLET 30 tablet 2 023 2024 Discontinued(M ed list cleanup (will not trigger notification to Pharmacy)) citalopram (CeleXA) 20 MG tabletIndicatio ns:Mixed anxiety and depressive disorder TAKE 1 TABLET BY MOUTH EVERY DAY WITH 10 MG TABLET 30 tablet 2 023 2024 Discontinued(M ed list cleanup (will not trigger notification to Pharmacy)) Mometasone Furoate (Asmanex HFA) 200 MCG/ACT aerosolIndicati ons:COPD with asthma (CMS/HCC) INHALE 2 PUFFS BY MOUTH TWICE DAILY. RINSE MOUTH AFTER USING 13 g 2 025 2024 Discontinued(A lternate therapy) albuterol (ProAir HFA) 108 (90 Base) MCG/ACT inhalerIndicati ons:COPD with asthma (CMS/HCC) Inhale 2 puffs every 4 (four) hours if needed for shortness of breath or wheezing. 18 g 2 025 2024 Discontinued(R eorder (will not trigger notification to Pharmacy)) lisinopril 10 MG tabletIndicatio ns:Primary hypertension Take 1 tablet (10 mg) by mouth in the morning. 90 tablet 025 2024 Discontinued(R eorder (will not trigger notification to Pharmacy)) Active Problems Problem Noted Date Diagnosed Date JOSE CRUZ (obstructive sleep apnea) 02/22/2025 Assessment & Plan (02/22/2025 12:02 PM EDT): - Previously had sleep study, which confirmed sleep apnea - Since last sleep study was 2020, will refer her to sleep medicine clinic Hepatic steatosis 02/22/2025 Assessment & Plan (02/22/2025 4:53 PM EDT): - Incidental finding on abdominal/pelvis CT in January 2025 - Continue working on lifestyle modifications - Check lab; consider ultrasound/elastography in the future Tobacco dependence 11/14/2022 Assessment & Plan (02/22/2025 5:03 PM EDT): Smoking greater than 20 pack years Start nicotine patch 21 mg daily Patient has tried Chantix which she disliked due to dry mouth Referred to lung cancer screening program Tubular adenoma of colon 11/13/2022 Assessment & Plan (02/22/2025 11:58 AM EDT): - Last colonoscopy 2019 but [facility] - Will refer her back to GI Dyslipidemia 09/01/2017 Assessment & Plan (02/22/2025 10:57 AM EDT): - Previously on atorvastatin 40 mg, will restart - Continue working on lifestyle modifications Gastroesophageal reflux disease 06/06/2016 Assessment & Plan (02/22/2025 11:57 AM EDT): - Previously on famotidine and omeprazole - Status Post EGD in 2019 by [facility] - Will restart with omeprazole Impaired fasting glucose 03/15/2015 Chronic back pain 01/25/2014 Assessment & Plan (02/22/2025 4:57 PM EDT): - [place] [facility] [place], last seen on 01/11/2025. Upcoming appointment to review MRI. - Patient has been taking NSAIDs and APAP. - Will add muscle relaxants, cyclobenzaprine 5 to 10 mg nightly as needed. 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 -Advised to continue w BP meds and fu w PCP in the next 4 wk. Hypertriglyceridemia 04/10/2012 Assessment & Plan (02/22/2025 4:52 PM EDT): - Last lipid profile 12/03/2022: Triglyceride of 225 - Restart atorvastatin 40 mg nightly - Continue working on lifestyle modification Mixed anxiety and depressive disorder 04/10/2012 Assessment & Plan (02/22/2025 4:55 PM EDT): - PHQ 9 score: 18 - PIPER 7 score: 16 - Previously on citalopram, clonidine, hydroxyzine - Will restart medications - Pt is interested in counseling Resolved Problems Problem Noted Date Diagnosed Date [...] and left voicemail with normal image result). Pain in female pelvis 03/15/20152024 Encounters * This document contains information received from the source organization and may not represent a complete record from that organization. Date Type Department Care Team Description 02/23/[address] [address] Jenny Abdul MD 02/23/2025 Telephone [facility] [address] [place] [phone] Jenny Abdul MD Telephone Call 02/22/2025 10:00 AM EDT Office Visit [address] [address] Jenny Abdul MD Routine general medical examination at a health care facility (Primary Dx); Routine screening for STI (sexually transmitted infection); Dyslipidemia; Primary hypertension; Impaired fasting glucose; Hypertriglyceridemia ; Allergic rhinitis, unspecified seasonality, unspecified trigger; Tubular adenoma of colon; Gastroesophageal reflux disease, unspecified whether esophagitis present; Mixed anxiety and depressive disorder; COPD with asthma (CMS/HCC); Tobacco dependence; Disorder of rotator cuff of both shoulders; Chronic low back pain, unspecified back pain laterality, unspecified whether sciatica present; Encounter for immunization; COPD with asthma (CMS/HCC); Insomnia, unspecified type; JOSE CRUZ (obstructive sleep apnea); Hepatic steatosis; Dietary counseling; Exercise counseling; Overweight 02/22/2025 Travel 02/21/[address] [address] Jenny Abdul MD chart prep 02/15/2025 Patient Outreach [facility] [address] [place] [address] Jenny Abdul MD Pre-visit Planning (SDOH negative, Tobacco screening negative) 01/26/[address] [address] Paul Reyes [place] Appointment Request 01/24/[address] [address] Jenny Abdul MD R/S APPT 01/18/[address] [address] Jenny Abdul MD Primary hypertension 01/11/2025 Orders Only [facility] External Provider, [facility] 01/07/[address] [address] Jenny Abdul MD Medication Question 12/21/[address] [address] Jenny Abdul MD No Show 12/20/[address] [address] Jenny Abdul MD CHART PREP 12/14/2024 Patient Outreach [facility] [address] [place], [place] [phone] Jenny Abdul MD Pre-visit Planning (SDOH will need to be completed in office. ) 11/30/[address] [address] Mary Carmen Humphrey NP from Last 3 Months Immunizations Immunization Administration Dates Next Due Hep B, adult 05/18/2007,01/14/2007,12/11/2006 Influenza Injectable Quadriv alant Preservative Free IIV4 MDCK 05/26/2018 Influenza injectable quadriv alent IIV4 with preservative 09/01/2017,06/06/2016,05/04/2015 Influenza injectable quadriv alent preservative free 06/22/2021,05/30/2020,05/17/2020,07/17 Influenza, IIV3, injectable 05/17/2014, 0,05/10/2009 Influenza, Split (incl. rukhsana fied surface antigen) 11/18/2013,04/10/2012 Pneumococcal Conjugate PCV 20 02/22/2025 Pneumococcal Polysaccharide PPSV23 11/18/2013, TD (adult), 2 Lf tetanus tox oid, preservative free, adsorbed 05/18/2007 Tdap 02/22/2025,04/10/2012 Zoster, Recombinant 06/08/2020 Family History Medical History Relation Name Comments Throat cancer Father Prostate cancer Maternal Grandfather Throat cancer Maternal Grandmother Colon cancer Mother Breast cancer Paternal Grandmother Relation Name Status Comments Father Maternal Grandfather Maternal Grandmother Mother Alive Paternal Grandmother Social History Tobacco Use Types Packs/Day Years Used Date Smoking Tobacco: Every Day Cigarettes Passive Smoke Exposure: Current Smokeless Tobacco: Never Tobacco Cessation:Ready to Q uit: Not Asked; Counseling Given: Not Answered Depression Answer Date Recorded Patient Health Questionnaire-9 Score 18 02/23/2025 Patient Health Questionnaire-9 Score 18 02/23/2025 Last PHQ-9: Questionnaire Data Not on file 0 02/23/2025 Housing Stability Answer Date Recorded What is your housing situation today? I have teri munoz 02/15/[address] you li ve. Do you have problems with any of the following? None of the above 02/15/2025 Food Insecurity Answer Date Recorded Within the past 12 months, y ou worried that your food would run out before you got money to buy more: Never True 02/15/2025 Within the past 12 months,th e food you bought just didn't last and you didn't have enough money to get more: Never True 03/2025 Transportation Answer Date Recorded In the past 12 months, has l ack of transportation kept you from medical appts, meetings, work or from getting things needed for daily living? No 02/15/2025 Utilities Answer Date Recorded In the past 12 months, has t he electric, gas, oil or water company threatened to shut off services in your home? No 02/15/2025 Depression Answer Date Recorded Patient Health Questionnaire-2 Score 3 02/23/2025 Internet Access Answer Date Recorded Internet Access Q1 Yes 02/15/2025 Internet Access Q2 Not on file 02/15/2025 Comments Unknown Sex and Gender Information Value Date Recorded Sex Assigned at Female 06/10/2022 10:15 AM EDT Legal Sex Female 10:15 AM EDT Gender Identity Female 06/10/2022 10:15 AM EDT Sexual Orientation Choose not to disclose 2021 10:15 AM EDT Last Filed Vital Signs Vital Sign Reading Time Taken Comments Blood Pressure 136/90 02/22/2025 10:28 AM EDT Pulse 97 02/22/2025 10:07 AM EDT Temperature 35.8 C (96.4 F) 02/22/2025 10:07 AM EDT Respiratory Rate 16 02/22/2025 10:07 AM EDT Oxygen Saturation 98% 02/22/2025 10:07 AM EDT Inhaled Oxygen Concentration - - Weight 81.3 kg (179 lb 3.2 oz) 02/22/2025 10:07 AM EDT Height 167.6 cm (5' 6 ) 02/22/2025 10:07 AM EDT Body Mass Index 28.92 02/22/2025 10:07 AM EDT Plan of Treatment Upcoming Encounters Date Type Department Care Team (Late st Contact Info) Description 03/28/2025 10:30 AM EDT Procedure Visit [facility] [address] [place] [address] Jenny Abdul MD [address] [place] [address] Health Maintenance Due Date Last Done Comments CT Colonography 1968 FIT DNA/Cologuard 1968 FIT 1968 FOBT 1970 HIV Screening 1970 Sigmoidoscopy 1968 Hepatitis C Screening 02/28/1986 Hepatitis A Vaccines (1 of 2 - Risk 2-dose series) 02/28/1987 Pap Smear 02/28/1989 Cervical Cancer Screening 02/28/1998 HPV/Cotest 02/28/1998 Zoster Vaccines (2 of 2) 08/03/2020 06/08/2020 COVID-19 Vaccine (1 - season) 2024 Influenza Vaccine (#1) 2025 , 05/30/2020, 05/17/2020, Additional history exists Colonoscopy 04/18/2025 04/18/2020 Colorectal Cancer Screening 04/18/2025 Depression Monitoring 08/26/2025 02/23/2025, 025 Mammogram 12/03/2025 12/03/2024 SDOH Screening 02/15/2026 02/15/2025 Alcohol/Substance Use Screening 02/22/2026 02/22/2025 Tobacco Screening 02/22/2026 02/22/2025 Disability Screening 02/23/2026 02/23/2025 Lipid Panel 12/04/2027 12/03/2022, 06/11, 01/26/2020 DTaP/Tdap/Td Vaccines (3 - Td or Tdap) 02/22/2035 02/22/2025, 04/10/2012, 05/18/2007 RSV Patients and Patients Aged 60 years or older (1 - 1-dose 75+ series) 02/28/2043 Hepatitis B Vaccines Completed 05/18/2007, 01/14/2007, 12/11/2006 Pneumococcal Vaccine: 50+ Years Completed 02/22/2025, 11/18/2013, 12/11/2006 HIB Vaccines Aged Out No longer [...] Procedure Name Priority Date/Time Associated Diagnosis Comments US ABDOMEN LIMITED Routine 02/04/2025 8: 52 AM EDT MR LUMBAR SPINE WO CONTRAST Routine 01/25/2025 6:26 PM EDT XR LUMBAR SPINE 6V W BENDING Routine 01/12/2025 8:47 AM EDT XR KNEE 3 VIEWS LEFT Routine 01/11/2025 9:00 PM EDT BI MAMMOGRAM SCREENING TOMOSYNTHESIS BILATERAL Routine 12/03/2024 8:00 AM EDT LIPID PANEL, STANDARD Routine 12/03/2022 8:40 AM EDT Dyslipidemia HM COLONOSCOPY Routine 04/18/2020 from Last 3 Months or Most Recently Relevant to Health Maintenance Results * US Abdomen Limited (02/04/2025 8:52 AM EDT) Anatomical Region Laterality Modality Abdomen Ultrasound 02/04/2025 8:52 AM EDT Narrative 02/04/2025 8:53 AM EDT [facility] [place] [address] Ultrasound Report Signed Patient: Sapphire Jenkins MR#: [id number] 2 : 1970 Acct:[id number] Age/Sex: 54 / F ADM Date: 02/03/25 Loc: HO.HMGCX Attending Dr: Torie LUNSFORD Ordering Physician: Torie Ware Date of Service: 02/03/25 Procedure(s): US abdomen limited Accession Number(s): [id number] cc: Torie Ware; Jenny Abdul MD CLINICAL HISTORY: K63.9 - Disease of intestine, unspecified --- Additional Notes or Special Instructions: Please further evaluate xray findings concern for: 8.8 cm rounded density US abdomen limited Comparison: None provided Findings: The visualized pancreas is normal. The aorta and inferior vena cava are normal caliber. The appearance of the liver suggests fatty infiltration with focal normals. Liver. There is no intrahepatic bile duct dilatation. The common duct is 4.9 mm in diameter. The gallbladder is normal. There is no sonographic Restrepo sign. The main portal vein is antegrade. The right kidney is 11.5 cm in length. No ascites. IMPRESSION: Hepatic steatosis. This document has been electronically signed by: David Beltran MD on 02/04/2025 08:52:37 Dictated By: David Beltran MD Signed By: <Electronically signed by David Beltran MD in OV> 02/04/25851 DD/ 1 TD/TT: 02/04/25851 Assistant Professor Of Archaeology: Procedure Note Donotuseinterpreter, Image - 02/04/2025 [facility] [place] [address] Ultrasound Report Signed Patient: Digna Jenkins#: [id number] 2 : 1970Acct:[id number] Age/Sex: 54 / FADM Date: 02/03/25 Loc: .HMGCX Attending Dr: Torie LUNSFORD Ordering Physician: Torie Ware Date of Service: 02/03/25 Procedure(s): US abdomen limited Accession Number(s): [id number] cc: Torie Ware; Jenny Abdul MD CLINICAL HISTORY: K63.9 - Disease of intestine, unspecified --- AdditionalNotes or Special Instructions: Please further evaluate xray findings concern for: 8.8 cmrounded density US abdomen limited Comparison: None provided Findings: The visualized pancreas is normal. The aorta and inferior vena cava are normal caliber. The appearance of the liver suggests fatty infiltration with focal normals. Liver. There is no intrahepatic bile duct dilatation. The common duct is 4.9 mm in diameter. The gallbladder is normal. There is no sonographic Restrepo sign. The main portal vein is antegrade. The right kidney is 11.5 cm in length. No ascites. IMPRESSION: Hepatic steatosis. This document has been electronically signed by: David Beltran MD on 02/04/2025 08:52:37 Dictated By: David Beltran MD Signed By: <Electronically signed by David Beltran MD in OV> 02/04/25851 DD/ TD/TT: 02/04/2552 Assistant Professor Of Archaeology: us [facility] External Provider IMG US PROCEDURES Final Result * MR Lumbar Spine w/o Contrast (01/25/2025 6:26 PM EDT) Anatomical Region Laterality Modality Spine, L-spine Magnetic Resonan ce 01/25/2025 6:26 PM EDT Narrative 01/25/2025 6:27 PM EDT [address] [address] Magnetic Resonance Report Signed Patient: Sapphire Jenkins MR#: [id number] 2 : 1970 Acct:[id number] Age/Sex: 54 / F ADM Date: 01/25/25 Loc: HO.MRI Attending Dr: Torie LUNSFORD Ordering Physician: Torie Ware Date of Service: 01/25/25 Procedure(s): MR lumbar spine wo con Accession Number(s): [id number] cc: Torie Ware; Jenny Abdul MD CLINICAL [...] in OV> 01/25/251826 DD/ 25 TD/TT: 01/25/251825 Assistant Professor Of Archaeology: Procedure Note Donotuseinterpreter, Image - 01/25/2025 [place] [address] Magnetic Resonance Report Signed Patient: Digna Jenkins#: [id number] 2 : 1970Acct:[id number] Age/Sex: 54 / FADM Date: 01/25/25 Loc: .MRI Attending Dr: Torie LUNSFORD Ordering Physician: Torie Ware Date of Service: 01/25/25 Procedure(s): MR lumbar spine wo con Accession Number(s): [id number] cc: Torie Ware; Jenny Abdul MD CLINICAL [...] in OV> 01/25/251826 DD/ 25 TD/TT: 01/25/251825 Assistant Professor Of Archaeology: [facility] External Provider IMG MRI PROCEDURES Final Result * XR LUMBAR SPINE 6V W BENDING (01/12/2025 8:47 AM EDT) Anatomical Region Laterality Modality Abdomen Radiographic Stephanie ging 01/12/2025 8:47 AM EDT Narrative 01/12/2025 8:49 AM EDT [address] [address] XRay Report Signed with Nehemiah Patient: Sapphire Jenkins MR#: [id number] 2 : 1970 Acct:[id number] Age/Sex: 54 / F ADM Date: 01/11/25 Loc: HO.XRAY Attending Dr: Torie LUNSFORD Ordering Physician: Torie Ware Date of Service: 01/11/25 Procedure(s): XR lumbar spine 6V w bending Accession Number(s): [id number] cc: Torie Ware; Jenny Abdul MD ADDENDUM This document has been electronically signed by: Barry Cramer MD on 01/12/2025 08:47:23 ADDENDUM: Receipt of this report by the clinical staff was confirmed with Hema Tafoya- dog control officer on Jan 13, 2025 09:15:00 EDT. [...] signed by Barry Cramer MD in OV> 01/12/25848 DD/ 6 TD/TT: 01/12/25846 Assistant Professor Of Archaeology: Procedure Note Donotuseinterpreter, Image - 01/13/[address] [address] XRay Report Signed with Nehemiah Patient: Digna Jenkins#: [id number] 2 : 1970Acct:[id number] Age/Sex: 54 / FADM Date: 01/11/25 Loc: HO.XRAY Attending Dr: Torie LUNSFORD Ordering Physician: Torie Ware Date of Service: 01/11/25 Procedure(s): XR lumbar spine 6V w bending Accession Number(s): [id number] cc: Torie Ware; Jenny Abdul MD ADDENDUM This document has been electronically signed by: Barry Cramer MD on 01/12/2025 08:47:23 ADDENDUM: Receipt of this report by the clinical staff was confirmed with Hema Tafoya- dog control officer on Jan 13, 2025 09:15:00 EDT. [...] in OV> 01/12/2549 DD/ 6 TD/TT: 01/12/25846 Assistant Professor Of Archaeology: us [facility] External Provider IMG XR PROCEDURES Edited Result - Final * XR Knee 3 Views Left (01/11/2025 9:00 PM EDT) Anatomical Region Laterality Modality Lower Extremities, Knee Left Radiogra phic Imaging 01/11/2025 9:00 PM EDT Narrative 01/11/2025 9:01 PM EDT [place] [address] XRay Report Signed Patient: Sapphire Jenkins MR#: [id number] 2 : 1970 Acct:[id number] Age/Sex: 54 / F ADM Date: 01/11/25 Loc: SUKHJINDER Attending Dr: Torie LUNSFORD Ordering Physician: Torie Ware Date of Service: 01/11/25 Procedure(s): XR knee LT 3V Accession Number(s): [id number] cc: Torie Ware; Jenny Abdul MD CLINICAL [...] in OV> 01/11/252099 DD/ 99 TD/TT: 01/11/252099 Assistant Professor Of Archaeology: Procedure Note Donotuseinterpreter, Image - 01/11/[address] [place] [address] XRay Report Signed Patient: Stefan JenkinsR#: [id number] 2 : 1970Acct:[id number] Age/Sex: 54 / FADM Date: 01/11/25 Loc: HODenyXRAY Attending Dr: Torie Ware 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 OPERATOR Ordering Physician: Torie Ware Date of Service: 01/11/25 Procedure(s): XR knee LT 3V Accession Number(s): [id number] cc: Troie Ware; Jenny Abdul MD CLINICAL HISTORY: M25.562 [...] in OV> 01/11/252099 DD/ 99 TD/TT: 01/11/252099 Assistant Professor Of Archaeology: [facility] External Provider IMG XR PROCEDURES Edited Result - Final * BI Mammogram Screening Tomosynthesis Bilateral (12/03/2024 8:00 AM EDT) Anatomical Region Laterality Modality Breast Bilateral Mammography 12/03/2024 8:00 AM EDT Narrative 12/11/2024 8:48 PM EDT [facility] [address] [place] [address] Mammography Report Signed Patient: Sapphire Jenkins MR#: [id number] 2 : 1970 Acct:[id number] Age/Sex: 54 / F ADM Date: 12/03/24 Loc: HO.MAMMO Attending Dr: Jenny Abdul MD Ordering Physician: Jenny Abdul MD Results: 1Negative Date of Service: 12/03/24 Follow Up: 1 Year From Orig ina Mammogram Procedure(s): MM tomosynthesis screening BI Accession Number(s): [id number] cc: Jenny Abdul MD EXAMINATION: MM SCREENING [...] signed by Lucretia Kerr DO in OV> 12/11/24 2045 DD/ 0800 TD/TT: 12/03/24 0817 Assistant Professor Of Archaeology: Procedure Note Donotuseinterpreter, Image - 12/11/[address] [facility] [address] [place], [place] [address] Mammography Report Signed Patient: Digna Jenkins#: [id number] 2 : 1970Acct:[id number] Age/Sex: 54 / FADM Date: 12/03/24 Loc: [facility] Attending Dr: Jenny Abdul MD Ordering Physician: Jenny Abdul MDResults: 1Negative Date of Service: 12/03/24Follow Up: 1 Year From [facility] Mammogram Procedure(s): MM tomosynthesis screening BI Accession Number(s): [id number] cc: Jenny Abdul MD EXAMINATION: MM SCREENING [...] OV> 12/11/242044 DD/ 0800 TD/TT: 12/03/24 0817 Assistant Professor Of Archaeology: Jenny Abdul MD [facility] PROCEDURES Edited Result - Final * (ABNORMAL) Lipid Panel, Standard (12/03/2022 8:40 AM EDT) Cholesterol, Total 198 <200 mg/dL [employer] HDL Cholesterol 57 > OR = 50 mg/dL [employer] Triglycerides 225(H) <150 mg/dL [employer] Comment: If a non-fasting specimen was collected, consider repeat triglyceride testing on a fasting specimen if clinically indicated. Greer et al. J. of Clin. Lipidol. 2015;9:129-169. LDL Cholesterol 107(H) mg/dL (calc) [employer] [facility] Comment: Reference range: <100 Desirable range <100 mg/dL for primary prevention; <70 mg/dL for patients with CHD or diabetic patients with > or = 2 CHD risk factors. LDL-C is now calculated using the Nicolas calculation, which is a validated novel method providing better accuracy than the Friedewald equation in the estimation of LDL-C. Timothy SS et al. TRAVIS. 2013;310(19): 9536-5400 (http://education.N3TWORK/faq/DQD684) Chol/HDLC Ratio 3.5 <5.0 (calc) [employer] Non-HDL Cholesterol 141(H) <130 mg/dL (calc) [employer] Comment: For patients with diabetes plus 1 major ASCVD risk factor, treating to a non-HDL-C goal of <100 mg/dL (LDL-C of <70 mg/dL) is considered a therapeutic option. Blood Venous blood specimen / Unknown 12/03/2022 8:40 AM EDT 12/03/2022 8:40 AM EDT Narrative [facility] - 12/03/2022 10:41 PM EDT FASTING:YES FASTING: YES Tyron Calix 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 OPERATOR LAB BLOOD ORDERABLES Final Result [facility] [address], [facility] [place] [address] [employer] [place] [employer] [address] [place] [address] * Hm Colonoscopy (04/18/2020) Colonoscopy Normal Normal 04/18/2020 us Ashley Drew MD HEALTH MAINTENANCE Edited Resul t - Final from Last 3 Months or Most Recently Relevant to Health Maintenance [place] [address] [place] [address] [address] [address] Care Teams Exercise Manager Relationship Specialty Start Date End Date Jenny Abdul MD [address] [place] [id number] PCP - General Family Medicine 08/11/18
--- OUTSIDE RECORDS SUMMARY | 2025-02-28 09:42 | XMS_ITS | Patient Health Record ---
Author Organization [facility] Address [address] [place] [address] Care Team Providers Care Life Scientist Name Role Phone Mainor Sanders Jr Reason For Referral No Information Plan Of Treatment No Information
== END 2025-02-28 09:39 | disposition home or self-care (01) ==
LOC: HO.PMC 09:18
PROVIDERS: PCP Family Medicine; Visit Provider Nurse Practitioner Family
DX: M47.817 Spondylosis without myelopathy or radiculopathy, lumbosacral region (principal); M54.9 Dorsalgia, unspecified; G89.29 Other chronic pain; M53.3 Sacrococcygeal disorders, not elsewhere classified; M25.562 Pain in left knee; M51.369 Other intervertebral disc degeneration, lumbar region without mention of lumbar back pain or lower extremity pain; M41.86 Other forms of scoliosis, lumbar region
CPT/HCPCS: 99214

== ENCOUNTER → 2025-02-28 09:18 | Outpatient (BNVA) | payer MEDICAID, SELFPAY | PROVIDERS: PCP Family Medicine; Visit Provider Nurse Practitioner Family | DX: Z71.2 Person consulting for explanation of examination or test findings (principal); M47.817 Spondylosis without myelopathy or radiculopathy, lumbosacral region; G89.29 Other chronic pain; M53.3 Sacrococcygeal disorders, not elsewhere classified; M25.562 Pain in left knee; M51.369 Other intervertebral disc degeneration, lumbar region without mention of lumbar back pain or lower extremity pain; M41.86 Other forms of scoliosis, lumbar region | CPT/HCPCS: 99212 ==

== ENCOUNTER 2025-03-31 06:11 | Outpatient (REF) | payer MEDICAID, SELFPAY ==
--- OUTSIDE RECORDS SUMMARY | 2025-03-31 06:14 | XMS_ITS | Patient Health Record ---
Author Organization [facility] Address [address] [place] [address] Care Team Providers Care Service Mechanic Name Role Phone Mainor Sanders Jr Reason For Referral No Information Plan Of Treatment No Information
--- OUTSIDE RECORDS SUMMARY | 2025-03-31 06:14 | XMS_ITS | Clinical Summary ---
Author Organization [employer] Address [address] [facility] 7[address] [place] [address] Care Team Providers Care Sterile Tech Name Role Phone Jenyn Abdul MD Primary Care Provider [phone] Allergies No known active allergies Medications * This document contains information received from the source organization and may not represent a complete record from that organization. dicyclomine (Bentyl) 20 MG tablet take 1 tablet by oral route 3 times a day as needed for abdominal discomfort 1 Active famotidine (Pepcid) 40 MG tablet Take 1 tablet by mouth at bed time. 2 Active montelukast (Singulair) 10 MG tablet Take 1 tablet by mouth at bed time. 1 Active albuterol (2.5 MG/3ML) 0.083% nebulizer solution inhale 3 milliliter by nebulization route 4 times every day prn as needed 75 mL 2 3 Active Blood Pressure kitIndications:E levated blood pressure reading in office with diagnosis of hypertension 1 each 2 times daily. 1 kit 5 026 Active hydrOXYzine HCl (Atarax) 25 MG tablet Take 1 tablet (25 mg) by mouth every 8 (eight) hours if needed for anxiety. 90 tablet 3 5 Active albuterol (ProAir HFA) 108 (90 Base) MCG/ACT inhalerIndicatio ns:COPD with asthma (CMS/HCC) Inhale 2 puffs every 4 (four) hours if needed for shortness of breath or wheezing. 18 g 2 5 Active citalopram (CeleXA) 20 MG tabletIndication s:Mixed anxiety and depressive disorder TAKE 1 TABLET BY MOUTH EVERY DAY WITH 10 MG TABLET 30 tablet 2 5 Active loratadine (Claritin) 10 MG tabletIndication s:Allergic rhinitis, unspecified seasonality, unspecified trigger Take 1 tablet (10 mg) by mouth in the morning. 90 tablet 5 Active atorvastatin (Lipitor) 40 MG tabletIndication s:Dyslipidemia Take 1 tablet (40 mg) by mouth in the morning. 90 tablet 5 Active cloNIDine (Catapres) 0.1 MG tabletIndication s:Insomnia, unspecified type TAKE 1 TABLET BY MOUTH ONCE DAILY NEEDED FOR SLEEP 90 tablet 5 Active lisinopril 20 MG tabletIndication s:Primary hypertension Take 1 tablet (20 mg) by mouth in the morning. 90 tablet 3 5 Active Diclofenac Sodium 1 % gel Apply to affected area once or twice daily 350 g 3 5 Active omeprazole (PriLOSEC) [address] capsule Take 1 capsule (20 mg) by mouth before breakfast. 90 capsule 3 5 Active cyclobenzaprine (Flexeril) 5 MG tablet Take 1 or 2 tablets by mouth in the evening as needed for muscle spasm 90 tablet 3 5 Active celecoxib (CeleBREX) 100 MG capsule Take 1 or 2 capsules by mouth twice daily as needed for pain 60 capsule 1 5 Active aspirin 81 MG chewable tablet Chew 1 tablet (81 mg) Once per day. 90 tablet 3 5 026 Active nicotine (Nicoderm CQ) 21 MG/24HR patch Place 1 patch on the skin 1 (one) time each day at the same time. 30 patch 1 5 Active Active Problems Problem Noted Date [...] AM EDT): - Last colonoscopy 2019 but [facility] - Will refer her back to GI Dyslipidemia 09/01/2017 Assessment & Plan (02/22/2025 10:57 AM EDT): - Previously on atorvastatin 40 mg, will restart - Continue working on lifestyle modifications Gastroesophageal reflux disease 06/06/2016 Assessment & Plan (02/22/2025 11:57 AM EDT): - Previously on famotidine and omeprazole - Status Post EGD in 2019 by [facility] - Will restart with omeprazole Impaired fasting glucose 03/15/2015 Chronic back pain 01/25/2014 Assessment & Plan (02/22/2025 4:57 PM EDT): - 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 Upcoming appointment to [...] organization. Date Type Department Care Team Description 03/25/2025 Telephone [facility] [place] [address] Jenny Abdul MD Insurance 03/25/2025 Telephone [facility] [place] [address] Jenny Abdul MD chart prep 03/01/2025 Population Health Risk Score [facility] (C3) Department [address] [address] Provider, Population Health Generic 02/23/2025 Telephone [facility] [place] [address] Jenny Abdul MD 02/23/2025 Telephone [facility] [place] [address] Jenny Abdul MD Telephone Call 02/22/2025 10:00 AM EDT Office Visit [facility] [place] [address] Jenny Abdul MD Routine general medical examination at a health care facility (Primary Dx); Routine screening for STI (sexually transmitted infection); Dyslipidemia; Primary hypertension; Impaired fasting glucose; Hypertriglyceridemi a; Allergic rhinitis, unspecified seasonality, unspecified trigger; Tubular [...] Exercise counseling; Overweight 02/22/2025 Travel 02/21/2025 Telephone [facility] [place] [address] Jenny Abdul MD chart prep 02/15/2025 Patient Outreach [facility] [address] [place] [address] Jenny Abdul MD Pre-visit Planning (SDOH negative, Tobacco screening negative) 01/26/2025 Telephone [facility] [address] [place] [address] Paul Reyes [place] Appointment Request 01/24/[address] [address] Jenny Abdul MD R/S APPT 01/18/2025 Refill [facility] [address] [place] [address] Jenny Abdul MD Primary hypertension 01/11/2025 Orders Only [facility] External Provider, [facility] 01/07/2025 Telephone [facility] [address] [place] [address] Jenny Abdul MD Medication Question from Last 3 Months Immunizations Immunization Administration [...] 02/22/2025 10:07 AM EDT Plan of Treatment Health Maintenance Due Date Last Done Comments CT Colonography 1968 FIT DNA/Cologuard 1968 FIT 1970 FOBT 1970 HIV Screening 1970 Sigmoidoscopy 1970 Hepatitis C Screening 02/28/1986 Hepatitis A Vaccines (1 of 2 - Risk 2-dose series) 02/28/1987 Pap Smear 02/28/1989 Cervical Cancer Screening 02/28/1998 HPV/Cotest 02/28/1998 Zoster Vaccines (2 of 2) 08/03/2020 06/08/2020 COVID-19 Vaccine ( - season) 2024 Influenza Vaccine (#1) 2025 [...] AM EDT Narrative 02/04/2025 8:53 AM EDT [facility] Primary [facility] [place] [place] [address] Ultrasound Report Signed Patient: Sapphire Jenkins MR#: [id number] 2 : 1970 Acct:[id number] Age/Sex: 54 / F ADM Date: 02/03/25 Loc: [facility] Attending Dr: Torie LUNSFORD Ordering Physician: Torie Ware Date of Service: 02/03/25 Procedure(s): US abdomen limited Accession Number(s): [id number] cc: Torie Ware; Jenny Abdul MD CLINICAL [...] signed by David Beltran MD in OV> 02/04/25 0852 DD/ TD/TT: 02/04/25851 Hair Spinner: Procedure Note Donotuseinterpreter, Image - 02/04/2025 [facility] Adult Primary Care [facility] [place] [place] [address] Ultrasound Report Signed Patient: Digna Jenkins#: [id number] 2 : 1970Acct:[id number] Age/Sex: 54 / FADM Date: 02/03/25 Loc: HO.[facility] Attending Dr: Torie LUNSFORD Ordering Physician: Torie Ware Date of Service: 02/03/25 Procedure(s): US abdomen limited Accession Number(s): [id number] cc: Torie Ware; Jenny Abdul MD CLINICAL [...] in OV> 02/04/25851 DD/ 1 TD/TT: 02/04/25851 Hair Spinner: us [facility] External Provider IMG US PROCEDURES Final Result * MR Lumbar Spine w/o Contrast (01/25/2025 6:26 PM EDT) Anatomical Region Laterality Modality Spine, L-spine Magnetic Resonan ce 01/25/2025 6:26 PM EDT Narrative 01/25/2025 6:27 PM EDT [place] [address] Magnetic Resonance Report Signed Patient: Sapphire Jenkins MR#: [id number] 2 : 1970 Acct:[id number] Age/Sex: 54 / F ADM Date: 01/25/25 Loc: HO.MRI Attending Dr: Torie LUNSFORD Ordering Physician: Torie Ware Date of Service: 01/25/25 Procedure(s): MR lumbar spine wo con Accession Number(s): [id number] cc: Torie Ware; Jenny Abdul MD CLINICAL [...] in OV> 01/25/251826 DD/ 25 TD/TT: 01/25/251825 Hair Spinner: Procedure Note Donotuseinterpreter, Image - 01/25/2025 [place] [address] Magnetic Resonance Report Signed Patient: Digna Jenkins#: [id number] 2 : 1970Acct:[id number] Age/Sex: 54 / FADM Date: 01/25/25 Loc: HO.MRI Attending Dr: Torie LUNSFORD Ordering Physician: Torie Ware Date of Service: 01/25/25 Procedure(s): MR lumbar spine wo con Accession Number(s): [id number] cc: Torie Ware; Jenny Abdul MD CLINICAL [...] MD in OV> 01/25/251826 DD/ 25 TD/TT: 06/17/25 1826 Hair Spinner: us [facility] External Provider IMG MRI PROCEDURES Final Result * XR LUMBAR SPINE 6V W BENDING (01/12/2025 8:47 AM EDT) Anatomical Region Laterality Modality Abdomen Radiographic Stephanie ging 01/12/2025 8:47 AM EDT Narrative 01/12/2025 8:49 AM EDT [address] [address] XRay Report Signed with Addenda Patient: Sapphire Jenkins MR#: [id number] 2 : 1970 Acct:[id number] Age/Sex: 54 / F ADM Date: 01/11/25 Loc: [facility] Attending Dr: Torie LUNSFORD Ordering Physician: Torie Ware Date of Service: 01/11/25 Procedure(s): XR lumbar spine 6V w bending Accession Number(s): [id number] cc: Torie Ware; Jenny Abdul MD ADDENDUM This document has been electronically signed by: Barry Cramer MD on 01/12/2025 08:47:23 ADDENDUM: Receipt of this report by the clinical staff was confirmed with Hema Tafoya- patrol officer on Jan 13, 2025 09:15:00 EDT. [...] in OV> 01/12/25848 DD/ 6 TD/TT: 01/12/25846 Hair Spinner: Procedure Note Donotuseinterpreter, Image - 01/13/2025 [place] [address] XRay Report Signed with Addsarahy Patient: Digna Jenkins#: [id number] 2 : 1970Acct:[id number] Age/Sex: 54 / FADM Date: 01/11/25 Loc: [facility] Attending Dr: Torie LUNSFORD Ordering Physician: Torie Ware Date of Service: 01/11/25 Procedure(s): XR lumbar spine 6V w bending Accession Number(s): [id number] cc: Torie Ware; Jenny Abdul MD ADDENDUM This document has been electronically signed by: Barry Cramer MD on 01/12/2025 08:47:23 ADDENDUM: Receipt of this report by the clinical staff was confirmed with Hema Tafoya- patrol officer on Jan 13, 2025 09:15:00 EDT. [...] signed by Barry Cramer MD in OV> 01/12/25 0849 DD/ 6 TD/TT: 01/12/25846 Hair Spinner: [facility] External Provider IMG XR PROCEDURES Edited Result - Final * XR Knee 3 Views Left (01/11/2025 9:00 PM EDT) Anatomical Region Laterality Modality Lower Extremities, Knee Left Radiogra phic Imaging 01/11/2025 9:00 PM EDT Narrative 01/11/2025 9:01 PM EDT [place] [address] XRay Report Signed Patient: Sapphire Jenkins MR#: [id number] 2 : 1970 Acct:[id number] Age/Sex: 54 / F ADM Date: 01/11/25 Loc: [facility] Attending Dr: Torie LUNSFORD Ordering Physician: Torie Ware Date of Service: 01/11/25 Procedure(s): XR knee LT 3V Accession Number(s): [id number] cc: Torie Ware; Jenny Abdul MD CLINICAL [...] in OV> 01/11/252099 DD/ 99 TD/TT: 01/11/252099 Hair Spinner: Procedure Note Donotuseinterpreter, Image - 01/11/2025 [place] [address] XRay Report Signed Patient: Digna Jenkins#: [id number] 2 : 1970Acct:[id number] Age/Sex: 54 / FADM Date: 01/11/25 Loc: [facility] Attending Dr: Torie LUNSFORD Ordering Physician: Torie Ware Date of Service: 01/11/25 Procedure(s): XR knee LT 3V Accession Number(s): [id number] cc: Torie Ware; Jenny Abdul MD CLINICAL [...] in OV> 01/11/252099 DD/ 99 TD/TT: 01/11/252099 Hair Spinner: us [facility] External Provider IMG XR PROCEDURES Edited Result - Final * BI Mammogram Screening Tomosynthesis Bilateral (12/03/2024 8:00 AM EDT) Anatomical Region Laterality Modality Breast Bilateral Mammography 12/03/2024 8:00 AM EDT Narrative 12/11/2024 8:48 PM EDT [address] [place] [address] Mammography Report Signed Patient: Sapphire Jenkins MR#: [id number] 2 : 1970 Acct:[id number] Age/Sex: 54 / F ADM Date: 12/03/24 Loc: B[facility] Attending Dr: Jenny Abdul MD Ordering Physician: Jenny Abdul MD Results: 1Negative Date of Service: 12/03/24 Follow Up: 1 Year From Orig ina Mammogram Procedure(s): MM tomosynthesis screening BI Accession Number(s): [id number] cc: Jenny Abdul MD EXAMINATION: MM SCREENING [...] Lucretia Kerr DO in OV> 12/11/242044 DD/ 9 TD/TT: 12/03/24816 Hair Spinner: Procedure Note Donotuseinterpreter, Image - 12/11/2024 [facility] [address] [place] [address] Mammography Report Signed Patient: Digna Jenkins#: [id number] 2 : 1970Acct:[id number] Age/Sex: 54 / FADM Date: 12/03/24 Loc: HO.MAMMO Attending Dr: Jenny Abdul MD Ordering Physician: Jenny Abdul MDResults: 1Negative Date of Service: 12/03/24Follow Up: 1 Year From Orig inal Mammogram Procedure(s): MM tomosynthesis screening BI Accession Number(s): [id number] cc: Jenny Abdul MD EXAMINATION: MM SCREENING [...] Lucretia Kerr DO in OV> 12/11/242044 DD/ 9 TD/TT: 12/03/24816 Hair Spinner: us Jenny Abdul MD IM BI PROCEDURES Edited Result - Final * (ABNORMAL) Lipid Panel, Standard (12/03/2022 8:40 AM EDT) Cholesterol, Total 198 <200 mg/dL [facility] HDL Cholesterol 57 > OR = 50 mg/dL [facility] Triglycerides 225(H) <150 mg/dL [facility] Comment: If a non-fasting specimen was collected, consider repeat triglyceride testing on a fasting specimen if clinically indicated. Greer et al. J. of Clin. Lipidol. 2015;9:129-169. LDL Cholesterol 107(H) mg/dL (calc) [facility] Comment: Reference range: <100 Desirable range <100 mg/dL for primary prevention; <70 mg/dL for patients with CHD or diabetic patients with > or = 2 CHD risk factors. LDL-C is now calculated using the Timothy-Kyara calculation, which is a validated novel method providing better accuracy than the Friedewald equation in the estimation of LDL-C. Timothy SS et al. TRAVIS. 2013;310(19): 3261-9405 (http://education.[employer]/faq/KBG293) Chol/HDLC Ratio 3.5 <5.0 (calc) [facility] Non-HDL Cholesterol 141(H) <130 mg/dL (calc) [facility] Comment: For patients with diabetes plus 1 major ASCVD risk factor, treating to a non-HDL-C goal of <100 mg/dL (LDL-C of <70 mg/dL) is considered a therapeutic option. Blood Venous blood specimen / Unknown 12/03/2022 8:40 AM EDT 12/03/2022 8:40 AM EDT Narrative [facility] - 12/03/2022 10:41 PM EDT FASTING:YES FASTING: YES Tyron Calix OY[facility] FISHERMAN LAB BLOOD ORDERABLES Final Result [facility] [address], [place] [address] [facility] [address] [place] [address] * Colonoscopy (04/18/2020) Colonoscopy Normal Normal 04/18/2020 Ashley Drew MD HEALTH MAINTENANCE Edited Resul t - Final from Last 3 Months or Most Recently Relevant to Health Maintenance Insurance [employer] Care Teams Sterile Tech Relationship Specialty Start Date End Date Jenny Abdul MD [address] [place] [address] PCP - General Family Medicine 08/11/18
== END 2025-03-31 06:12 | disposition home or self-care (01) ==
LOC: CF 06:11
PROVIDERS: Visit Provider Internal Medicine
DX: Z13.89 Encounter for screening for other disorder (principal)